=== PATIENT | female | born 1970 | race Caucasian/White ===

== ENCOUNTER → 2020-05-20 12:33 | Outpatient (BNVA) | payer OTHER, SELFPAY | PROVIDERS: PCP Physician Assistant; Referring Provider Physician Assistant; Visit Provider Nurse Practitioner | DX: Z76.89 Persons encountering health services in other specified circumstances (principal) ==

== ENCOUNTER 2020-09-01 08:53 | Outpatient (REF) | payer OTHER, SELFPAY ==
--- NOTE | 2020-09-01 | MM_ITS ---
EXAMINATION: MM SCREENING DIGITAL BREAST TOMOSYNTHESIS, BILATERAL CLINICAL INFORMATION: Screening. Asymptomatic. Benign right breast stereotactic biopsy 08/26/2019. The lifetime risk of breast cancer based on the Tyrer-Cuzick Model is 13%. COMPARISON: Mammography: 02/26/2020, 08/26/2019, 08/22/2019, 08/21/2019, 08/02/2018 TECHNIQUE: Digital breast tomosynthesis is performed in both the craniocaudal and mediolateral oblique views along with computer-aided detection (CAD). Synthesized 2D images are generated from the tomosynthesis. FINDINGS: The breasts are heterogeneously dense, which may obscure small masses (ACR BI-RADS breast composition Category c). There is fibronodular parenchymal pattern similar to prior exam. There is no interval mass or architectural abnormality. Biopsy clip marker again noted right breast lower medial quadrant. There are scattered punctate calcifications in both breasts again seen. No suspicious changes. MM/MM tomosynthesis screening BI IMPRESSION: No mammographic evidence of malignancy. ASSESSMENT: BI-RADS 2: Benign RECOMMENDATION: Routine annual mammography screening. This patient's information was entered into a reminder system with a target due date for their next mammogram.
== END 2020-09-01 08:54 | disposition home or self-care (01) ==
LOC: HO.MAMMO 08:53
PROVIDERS: Visit Provider Physician Assistant
DX: Z12.31 Encounter for screening mammogram for malignant neoplasm of breast (principal)
CPT/HCPCS: 77063; 77067

== ENCOUNTER 2021-05-17 10:00 | Outpatient (RCR) | payer OTHER, SELFPAY | END 2021-08-08 12:03 | disposition home or self-care (01) | LOC: HO.PT 10:00 | PROVIDERS: PCP Physician Assistant; Visit Provider Family Medicine | DX: M72.2 Plantar fascial fibromatosis (principal) | CPT/HCPCS: 97035; 97110; 97112; 97140; 97161 ==

== ENCOUNTER → 2021-08-22 14:24 | Outpatient (BNVA) | payer OTHER, SELFPAY | PROVIDERS: PCP Physician Assistant; Visit Provider Physician Assistant | DX: M72.2 Plantar fascial fibromatosis (principal) | CPT/HCPCS: 20550; J1020 ==

== ENCOUNTER 2021-09-05 08:00 | Outpatient (REF) | payer OTHER, SELFPAY ==
--- NOTE | ~2021-09-05 | MM_ITS ---
EXAMINATION: MM SCREENING DIGITAL BREAST TOMOSYNTHESIS, BILATERAL CLINICAL INFORMATION: Screening. Asymptomatic. Benign right stereotactic biopsy 08/26/2019 (fibrocystic changes and microcalcifications). The lifetime risk of breast cancer based on the Tyrer-Cuzick Model is 13%. COMPARISON: Mammography: 09/01/2020, 02/26/2020, 08/26/2019, 08/22/2019, 08/11/2019, 08/02/2018 TECHNIQUE: Digital breast tomosynthesis is performed in both the craniocaudal and mediolateral oblique views along with computer-aided detection (CAD). Synthesized 2D images are generated from the tomosynthesis. FINDINGS: The breasts are heterogeneously dense, which may obscure small masses (ACR BI-RADS breast composition Category c). There are no significant masses, abnormal calcifications, or other abnormalities. Parenchymal pattern is similar to prior studies. There is no developing density or architectural abnormality. Fibronodular parenchymal pattern is similar to prior studies. Biopsy clip marker again noted right breast mid lower inner quadrant. The axilla and skin contours are unremarkable. No significant changes. MM/MM tomosynthesis screening BI IMPRESSION: No mammographic evidence of malignancy. ASSESSMENT: BI-RADS 2: Benign RECOMMENDATION: Routine annual mammography screening. This patient's information was entered into a reminder system with a target due date for their next mammogram.
== END 2021-09-05 08:01 | disposition home or self-care (01) ==
LOC: HO.MAMMO 08:00
PROVIDERS: PCP Physician Assistant; Visit Provider Physician Assistant
DX: Z12.31 Encounter for screening mammogram for malignant neoplasm of breast (principal)
CPT/HCPCS: 77063; 77067

== ENCOUNTER → 2022-01-30 15:27 | Outpatient (BNVA) | payer OTHER, SELFPAY | PROVIDERS: PCP Physician Assistant; Visit Provider Physician Assistant | DX: M72.2 Plantar fascial fibromatosis (principal) | CPT/HCPCS: J1020 ==

== ENCOUNTER → 2022-09-05 15:27 | Outpatient (BNVA) | payer OTHER, SELFPAY | PROVIDERS: PCP Physician Assistant; Visit Provider Physician Assistant | DX: M72.2 Plantar fascial fibromatosis (principal) | CPT/HCPCS: J1020 ==

== ENCOUNTER 2022-09-08 07:29 | Outpatient (REF) | payer OTHER, SELFPAY ==
--- NOTE | ~2022-09-08 | MM_ITS ---
EXAMINATION: MM SCREENING DIGITAL BREAST TOMOSYNTHESIS, BILATERAL CLINICAL INFORMATION: Screening. Asymptomatic. The lifetime risk of breast cancer based on the Tyrer-Cuzick Model is 9.5%. COMPARISON: Mammography: 09/05/2021 and studies dating back to 12/03/2015. TECHNIQUE: Digital breast tomosynthesis is performed in both the craniocaudal and mediolateral oblique views along with computer-aided detection (CAD). Synthesized 2D images are generated from the tomosynthesis. FINDINGS: The breasts are extremely dense, which lowers the sensitivity of mammography (ACR BI-RADS breast composition Category d). There is multiplicity and bilaterality of calcifications. About the deep lateral aspect of the left breast on craniocaudal view there is seen to be a density with some calcifications but which appears stable compared to study of 09/01/2020. About the deep nipple line region right mediolateral oblique projection there is a density with some calcifications which may be artifactual related to tomosynthesis, however this overlies a region of vessels. Spot magnification view is recommended to ensure that these represent the vessels and not a mass containing calcifications. MM/MM tomosynthesis screening BI IMPRESSION: Right breast density along the deep nipple line with calcifications for which spot magnification views are recommended. ASSESSMENT: BI-RADS 0: Incomplete - Need Additional Imaging Evaluation RECOMMENDATION: 1. Additional views of the right breast. 2. Targeted ultrasound if warranted after review of the additional views. 3. Radiology department staff will contact the patient for additional imaging.
== END 2022-09-08 07:30 | disposition home or self-care (01) ==
LOC: HO.MAMMO 07:29
PROVIDERS: PCP Physician Assistant; Visit Provider Physician Assistant
DX: Z12.31 Encounter for screening mammogram for malignant neoplasm of breast (principal)
CPT/HCPCS: 77063; 77067

== ENCOUNTER 2022-10-05 13:32 | Outpatient (REF) | payer OTHER, SELFPAY ==
--- NOTE | ~2022-10-05 | MM_ITS ---
EXAMINATION: MM DIAGNOSTIC DIGITAL BREAST TOMOSYNTHESIS, RIGHT CLINICAL INFORMATION: Recall from screening for question of density with calcifications along posterior nipple line on MLO view. TC score 10%. COMPARISON: Mammography: Multiple prior mammographic exams, most recent 09/08/2022. TECHNIQUE: Digital breast tomosynthesis is performed. 2D images are generated from the tomosynthesis. The following views are obtained: Magnification MLO, magnification rolled MLO. FINDINGS: The breasts are extremely dense, which lowers the sensitivity of mammography (ACR BI-RADS breast composition Category d). The additional views show fibroglandular densities similar to prior studies. The asymmetric density noted on recent exam corresponds to vascular markings similar to prior studies. There is no interval mass. Again, scattered punctate round calcifications are present in the right breast similar in distribution to prior studies. There are no significant changes. Results are discussed with the patient at time of visit. MM/MM tomosynthesis added views R IMPRESSION: Additional views show no significant changes from prior studies. ASSESSMENT: BI-RADS 2: Benign RECOMMENDATION: Routine annual mammography screening. This patient's information was entered into a reminder system with a target due date for their next mammogram.
== END 2022-10-05 13:33 | disposition home or self-care (01) ==
LOC: HO.MAMMO 13:32
PROVIDERS: PCP Physician Assistant; Visit Provider Physician Assistant
DX: R92.8 Other abnormal and inconclusive findings on diagnostic imaging of breast (principal)
CPT/HCPCS: 77061; 77065

== ENCOUNTER 2023-09-17 07:27 | Outpatient (REF) | payer OTHER, SELFPAY ==
--- NOTE | ~2023-09-17 | MM_ITS ---
EXAMINATION: MM SCREENING DIGITAL BREAST TOMOSYNTHESIS, BILATERAL CLINICAL INFORMATION: Screening. Asymptomatic. COMPARISON: Mammography: This study is compared with prior exams dating back to 2018. TECHNIQUE: Digital breast tomosynthesis is performed in both the craniocaudal and mediolateral oblique views along with computer-aided detection (CAD). Synthesized 2D images are generated from the tomosynthesis. FINDINGS: The breasts are heterogeneously dense, which may obscure small masses (ACR BI-RADS breast composition Category c). There are no significant masses, abnormal calcifications, or other abnormalities. There is a tissue marker present in the right breast from prior benign percutaneous biopsy. Few, bilateral benign calcifications are present. MM/MM tomosynthesis screening BI IMPRESSION: No mammographic evidence of malignancy. ASSESSMENT: BI-RADS BI-RADS 2 - Benign Findings RECOMMENDATION: Routine annual mammography screening. 1 year F/U This examination should not preclude the clinical evaluation of a suspicious palpable abnormality. This patient's information was entered into a reminder system with a target due date for their next mammogram.
== END 2023-09-17 07:28 | disposition home or self-care (01) ==
LOC: HO.MAMMO 07:27
PROVIDERS: PCP Physician Assistant; Visit Provider Physician Assistant
DX: Z12.31 Encounter for screening mammogram for malignant neoplasm of breast (principal)
CPT/HCPCS: 77063; 77067

== ENCOUNTER → 2023-09-17 07:30 | Outpatient (BNV) | payer OTHER, SELFPAY | PROVIDERS: PCP Physician Assistant; Visit Provider Radiology Diagnostic Radiology | DX: Z12.31 Encounter for screening mammogram for malignant neoplasm of breast (principal) | CPT/HCPCS: 77063; 77067 ==

== ENCOUNTER 2024-06-27 08:01 | Outpatient (REF) | payer OTHER, SELFPAY ==
[2024-06-27 09:14] LABS: Anion Gap 9 (12-20); Blood Urea Nitrogen 19 mg/dL (9-16); Calcium 9.8 mg/dL (8.4-10.2); Carbon Dioxide 29 mmol/L (22-29); Chloride 107 mmol/L (96-108); Cholesterol 296 mg/dL (<200); Estimated Glomerular Filt Rate > 60; Glucose Random 86 mg/dL (60-115); HDL Cholesterol 61 mg/dL (>40); LDL Cholesterol Calculated 211 mg/dL (<100); Sodium 141 mmol/L (135-145); Triglycerides 124 mg/dL (<150)
[2024-06-27 09:31] LABS: ~Hepatitis C Antibody Nonreactive (Nonreactive)
== END 2024-06-27 08:02 | disposition home or self-care (01) ==
LOC: HO.LAB 08:01
PROVIDERS: PCP Physician Assistant; Visit Provider Physician Assistant
DX: Z11.59 Encounter for screening for other viral diseases (principal); E78.5 Hyperlipidemia, unspecified
CPT/HCPCS: 36415; 80048; 80061; 86803

== ENCOUNTER 2024-09-30 07:25 | Outpatient (REF) | payer OTHER, SELFPAY | END 2024-09-30 07:26 | disposition home or self-care (01) | LOC: HO.MAMMO 07:25 | PROVIDERS: PCP Physician Assistant; Visit Provider Physician Assistant | DX: Z12.31 Encounter for screening mammogram for malignant neoplasm of breast (principal) | CPT/HCPCS: 77063; 77067 ==

== ENCOUNTER → 2024-09-30 07:30 | Outpatient (BNV) | payer OTHER, SELFPAY | PROVIDERS: PCP Physician Assistant; Visit Provider Internal Medicine | DX: Z12.31 Encounter for screening mammogram for malignant neoplasm of breast (principal) | CPT/HCPCS: 77063; 77067 ==

== ENCOUNTER 2024-10-13 07:42 | Outpatient (REF) | payer OTHER, SELFPAY ==
--- OUTSIDE RECORDS SUMMARY | 2024-10-13 07:45 | XMS_ITS | Data Portability ---
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 MAGALI SANCHES Primary Care Provider [facility] Orthopedist Assessment Encounter Date Assessment Date Assessment LastModified by Organization Details LastModified Time 08/31/2020 08/31/2020 Patient agreed to this visit via a secure telehealth platform due to the COVID -19 pandemic. Patient understands this is a scheduled visit and the usual procedures with regard to billing and confidentiality apply. Patient was notified that the provider location is [facility] Patient location: home During the visit the patient? s medical history and medical record were reviewed. The patient was notified to call our office for worsening or urgent symptoms. Not available 08/31/2020 09:01:43 10/20/2020 10/20/2020 Patient agreed to this visit via a secure telehealth platform due to the COVID -19 pandemic. Patient understands this is a scheduled visit and the usual procedures with regard to billing and confidentiality apply. Patient was notified that the provider location is Patient location: home During the visit the patient? s medical history and medical record were reviewed. The patient was notified to call our office for worsening or urgent symptoms. [email or web address] Not available 10/20/2020 12:08:58 07/23/2024 07/23/2024 Assessment & Plan Hypertension Home blood pressure readings have been satisfactory, with the highest reading being 130. Office blood pressure readings remain slightly elevated. The patient has not yet started estrogen therapy due to concerns about potential blood pressure elevation. -Continue monitoring blood pressure at home once a week. -Bring home blood pressure machine to next visit for accuracy check. Hyperlipidemia Recent labs showed elevated LDL cholesterol. The patient has started logging food intake and recognizes the need for dietary improvements. -Encourage dietary changes, including increased fiber intake, reduced sodium, and increased consumption of fruits and vegetables. -Recheck lipid panel in three months. Menopausal Symptoms The patient reports ongoing symptoms including night sweats, hot flashes, and brain fog. The patient has not yet started prescribed estrogen and progestin therapy. -Start estrogen and progestin therapy as previously discussed. -Follow up on symptom improvement at next visit. Tennis Elbow (Right) The patient reports ongoing discomfort, which has impacted gym attendance and exercise routine. A referral for physical therapy was previously provided but the patient has not yet scheduled an appointment. -Encourage scheduling of physical therapy appointment. -Discuss return to gym and exercise routine with physical therapist to avoid exacerbation of symptoms. Follow-up in three months. The patient should have lipid panel drawn one week prior to the next visit. camacho Not available 07/25/2024 19:59:32 Plan of Treatment Reminders Order Date Submit Date Provider Last Modified By Organization Details Last Modified Time Details Appointments Medical Managemen t 30 2024 08:00A M YAMILET Brody Not available Not available Not available Wellness Visit 30 2024 09:00A M YAMILET Brody Not available Not available Not available Lab lipid panel, serum 2023 [facility], [address] [place] [address], [id number], 10/08/2024 07:34:04 hepatitis C virus Ab, serum 2023 024 [facility], [address] [place], [address], 06/30/2024 11:14:55 lipid panel, serum 2023 024 [facility], [address] [place], [address], 06/30/2024 11:14:55 BMP, serum or plasma 2023 024 [facility], [address] [place] [address], [place], [address], 06/30/2024 11:14:54 Referral physical therapist referral 2020 [facility], [address] [place] [address], [id number], 03/08/2021 15:03:30 car 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 Surgeries None recorded. Imaging None recorded. Medication Orders estradiol 0.5 mg tablet 2023 024 [facility], [address] [place] [address], [address], 07/23/2024 08:30:09 progester one micronize d 100 mg capsule 2023 024 [facility], [address] [place] [address], [id number], 07/23/2024 08:30:21 Patient TargetsNo targets recorded. Patient Instructions Encounter Date Encounter Id Patient Instructions Last Modified By Organization Details Last Modified Time 08/31/2020 [id number] well visit, wome n 50 to 65: care instructions Not available 08/31/2020 09:03:33 10/20/2020 [id number] After a discussi on of treatment options, which included consideration of best practices, patient preferences, and the patient? s individual lifestyle and treatment goals, as well as consideration and attempted mitigation of any barriers to meeting the patient? 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 [place] [address] Lab Direc tor: Mayra jordan MD DRY LUMBER GRADER Cytol ogy Repor t Acces fermín #: [id number] FINAL DIAGN OSIS A. PAP SMEAR (SURE PATH) CE: SPECI MEN ADEQU ACY: Satis facto ry for evalu ation ; trans forma tion zone prese nt. INTER PRETA TION: NEGAT GINA FOR INTRA EPITH ELIAL SADA N OR MALDEMETRA CASTANEDA . Elect bart hoang Bridgett d Out By: Julianne Anna er, CT( CP) The Pap test is a scree michel test prima rily for squam ous cance rs and precu rsors and has assoc iated false -nega tive and false -posi tive resul ts. New techn ologi es such as liqui d-bas ed prepa ratio ns may decre ase but will not elimi mayco all false -nega tive resul ts. Regul ar sampl ing and follo w-up of unexp neel d clini sylvia signs and sympt oms are recom elly d to minim ize false negat gina resul ts. PROCE DURES /ADDE NDA HPV Testi ng (Requ ested ) Order ed Date: 2022 A. PAP SMEAR (SURE PATH) CE: Human Papil austyn Virus Test NEGAT GINA for high- risk Human Papil austyn Virus types 16, 18, 45 and the Othe r high risk probe set (Incl udes 31, 33, 35, 39, 51, 52, 56, 58, 59, 66, 68) Note: Testi ng perfo rmed by Lizette dorado Oncla rosay HR-HP V roney sis. Clini sylvia corre latio n is advis ed. This HPV test was perfo rmed at [facility], [address] [facility]. This test has been FDA appro priscilla for SureP ath cervi sylvia cytol ogy speci mens. The accur acy and preci fermín of this test for all other speci men sourc es has been verif ied in the Cytop athol ogy Labor atory of the [facility] and has not been clear ed or appro priscilla by the U.S. Food and Drug Admin istra tion. Clini sylvia corre latio n is advis ed. Elvira ctron icall y Bridgett d Out By: Mitra Plunkett on 2022 11:01 CLINI SYLVIA HISTO RY Date of Last Menst rual Perio d: 2022 Menst rual Histo ry: Simona- Menop ausal Contr acept gina Histo ry: Miren a Other Clini sylvia Condi tions : Scree michel Pap SPECI MEN SOURC E A: PAP SMEAR (SURE PATH) CE Patie nt Name: YVETTE MCFARLANE : 1969 (Age: 52) Sex: F 4 Insti tutio n: [facility] Locat ion: [facility] Date of Colle ction : 2022 Date of Acces fermín: 2022 Repor alex: 2022 11:57 Resul ts to: Saniya Lester MD Not Available [facility] (Outpatient) [address] [place], [address], 11/02/2022 12:06:16 09/02/19 21 09/01/2020 MAMMO clairerita pearson No observ ation record ed. facundo [facility] [address] [place], [address], 09/02/2020 10:46:33 09/06/19 22 09/05/2021 MAMMO , scree michel No observ ation [facility] ed[facility] [place] [address] [place], [address], 09/06/2021 09:07:11 09/11/19 23 09/08/2022 MAMMO , scree michel, tomos ynthe sis, bilat eral No observ ation record ed. [address] [place], [address], 09/17/2022 20:19:14 10/06/19 23 10/05/2022 MAMMO , scree michel No observ [facility]ion [facility] [place] [address] [place], [address], 10/05/2022 15:29:03 10/05/19 25 09/30/2024 MAMMO , scree michel No observ ation record ed. [facility] [place] [address] [place], [address], 10/06/2024 08:37:01 Result Notes None recorded. Problems Name Problem SNOMED Code Status Onset Date Resolution Date Notes Provider Name and Address Organization Details Recorded Time Abnormal findings on diagnostic imaging of breast 197123774 Completed 11/10/2015 Brea Birch NP [address] [place] [address], [address] , [facility] 6 10:36:57 Axillary lymphadeno asia 985869430 Completed 11/10/2015 Brea Birch NP [address] [place] [address], [address] , [facility] 6 10:36:57 Mammograph y abnormal 476127293 Active Brea Birch NP [address] [place] [address], [address] , [facility] 6 10:36:57 Knee pain Completed 11/10/2015 Brea Birch NP [address] [place] [address], [address] , [facility] 6 10:36:57 Disorder of hair 534140378 Completed 11/10/2015 Brea Birch NP [address] [place] [address], [address] , [facility] 6 10:36:57 Lymphadeno asia 01947257 Active Brea Birch NP [address] [place] [address], [address] , [facility] 6 10:36:57 Allergic rhinitis 54519337 Active 2016 YAMILET Brody [address] [place] [address], [address] , [facility] 7 16:07:37 Adverse reaction to substance 627434888 Completed 200511/10/2015 Brea Birch NP [address] [place] [address], [address] , [facility] 6 10:36:57 Adverse reaction to drug 33762795 Completed 200511/10/2015 Brea Birch NP [address] [place] [address], [address] , [facility] 6 10:36:57 Precordial pain 05557325 Completed 200606/25/2013 Brea Birch NP [address] [place] [address], [address] , [facility] 6 10:36:57 Abdominal pain 66710063 Completed 06/25/2013 Brea Birch NP [address] [place] [address], [address] , [facility] 6 10:36:57 Common cold 51730921 Completed 200206/25/2013 Brea Birch NP [address] [place], [address] , [facility] 6 10:36:57 Palpitatio ns 06307576 Completed 200111/10/2015 Brea Birch NP [address] [place] [address], [address] , [facility] 6 10:36:57 Shoulder pain 88292152 Completed 06/25/2013 Brea Birch NP [address] [place] [address], [address] , [facility] 6 10:36:57 Anemia 542616453 Completed 200611/10/2015 Brea Birch NP [address] [place], [address] , [facility] 6 10:36:57 Benign essential hypertensi on 3808478 Completed 200608/31/2020 Rosa Valencia PA-C [address] [place] [address], [address] , [facility] 1 08:57:33 Elevated blood-pres sure reading without diagnosis of hypertensi on 654214755 Completed 11/10/2015 Brea Birch NP [address] [place] [address], [address] , [facility] 6 10:36:57 Other Completed 06/25/2013 Brea Birch NP [address] [place] [address], [address] , [facility] 6 10:36:57 Problem Notes None recorded. Procedures Surgical History Date Name Laterality Status Provider Name and Address Organization Details Recorded Time 1 prevention-card iovascular risk reduction counseling completed Adri Grey [facility] 08/31/2020 07:55:10 1 prevention-roberth al alcohol misuse screening completed Adri Grey [facility] 08/31/2020 07:55:10 4 23880: Therapeutic Exercise completed Jarred Ga, PT [address] [place], [address], [facility] 12/11/2013 08:13:50 4 07257: Therapeutic Exercise completed Jarred Ga, PT [address] [place], [address], [facility] 12/05/2013 10:10:30 4 Treatment and Advice completed Jarred Ga, PT [address] [place], [address], [facility] 12/05/2013 10:01:36 4 53439: Therapeutic Exercise completed Jarred Ga, PT [address] [place], [address], [facility] 11/21/2013 10:00:36 4 53828: Manual Therapy completed Jarred Ga, PT [address] [place], [address], [facility] 11/21/2013 10:00:36 4 59300: Therapeutic Exercise completed Jarred Ga, PT [address] [place], [address], [facility] 11/19/2013 10:00:20 4 21195: Manual Therapy completed Jarerd Ga, PT [address] [place], [address], [facility] 11/19/2013 10:00:20 4 98230: Therapeutic Exercise completed Jarred Ga, PT [address] [place], [address], [facility] 11/11/2013 10:37:15 4 65129: Manual Therapy completed Jarred Ga, PT [address] [place], [address], [facility] 11/11/2013 10:37:15 4 Treatment and Advice completed Jarred Ga, PT [address] [place], [address], [facility] 10/29/2013 15:00:07 0 Treatment and Advice completed Jarred Ga, PT [address] [place], [address], [facility] 03/09/2010 09:01:17 0 Treatment and Advice completed Jarred Ga, PT [address] [place], [address], [facility] 02/16/2010 08:00:32 0 Treatment and Advice completed Jarred Ga, PT [address] [facility], [place], [address], [facility] 02/09/2010 08:03:22 Imaging Results Imaging Date Name Status LastModified by Organiz ation Details LastModified Time 09/01/2020 MAMMO, screening completed facundo [address] [place], [address], 09/02/2020 10:46:33 09/05/2021 MAMMO, screening completed azryannalDylan [address] [place], [address], 09/06/2021 09:07:11 09/08/2022 MAMMO, screening, tomosynthesis, bilateral completed bhaskar[address] [place], [address], 09/17/2022 20:19:14 10/05/2022 [facility]MO, [facility] [address] [place], [address], 10/05/2022 15:29:03 09/30/2024 MAMMO, screening completed [email or web address] [place], [address], 10/06/2024 08:37:01 Procedure Notes None recorded. Medical Equipment None Reported. Allergies No known drug allergies Medications Name Sig Start Date Stop Date Status Note LastModified by Organization Details LastModified Time doxycycli ne hyclate 100 mg capsule 08/28 completed Not Available Not Available Not Available estradiol 0.5 mg tablet Take 1 tablet every day by oral route. active has not started taking 07/23/24 oad Not Available Not Available Not Available fluticaso ne propionat e 50 mcg/actua tion nasal spray,jhon pension SHAKE LIQUID AND USE 2 SPRAYS IN EACH NOSTRIL EVERY DAY IN THE MORNING active Not Available Not Available No t Available doxycycli ne hyclate 100 mg tablet 08/28 completed Not Available Not Available Not Available progester one micronize d 100 mg capsule Take 1 capsule every day by oral route for 30 days. active has not started taking 07/23/24 oad Not Available Not Available Not Available Dulcolax (bisacody l) 5 mg tablet,de layed release TK 2 TS PO BID 08/31 completed Not Available Not Available Not Available tobramyci n 0.3 %-dexamet hasone 0.1 % eye drops,jhon pension 06/03 completed Not Available Not Available Not Available peg 3350-elec trolytes 236 gram-22.7 4 gram-6.74 gram-5.86 gram solution MIX AND DRINK UTD 08/31 completed Not Available Not Available Not Available Vitals Date Recorded Body height Body mass index (BMI) Body weight Body temperature Provider Name and Address Organization Details Last Updated DateTime 08/31/2020 156.85 cm 20.6 kg/m2 23299.35 g 97.2 [degF] Adri Grey [facility] 08/31/2020 08:33:40 Date Recorded Body height Body mass index (BMI) Body weight Heart rate Provider Name and Address Organization Details Last Updated DateTime 10/20/2020 156.85 cm 20.6 kg/m2 31088.35 g 73 /min Yamel Osorio MA [facility] 10/20/2020 12:06:02 Date Recorded Body height Body mass index (BMI) Body weight Systolic blood pressure Diastolic blood pressure Provider Name and Address Organization Details Last Updated DateTime 03/01/2021 156.85 cm 20.3 kg/m2 30728.16 g 130 mm[Hg] 68 mm[Hg] Fiorella Stubbs MA [facility] 11:49:41 Date Recorded Body weight Body mass index (BMI) Body height Heart rate Oxygen saturation Oxygen saturation in Arterial blood by Pulse oximetry Systolic blood pressure Diastolic blood pressure Provider Name and Address Organization Details Last Updated DateTime 4 39497.7 1 g 22.3 kg/m2 153.67 cm 77 /min 99 % 99 % 144 mm[Hg] 80 mm[Hg] GUERO Gooden [facility] 4 16:09:15 Date Recorded Body height Body mass index (BMI) Body weight Heart rate Systolic blood pressure Diastolic blood pressure Systolic blood pressure Diastolic blood pressure Provider Name and Address Organization Details Last Updated DateTime 4 153.67 cm 22 kg/m2 29394.9 7 g 80 /min 134 mm[Hg] 74 mm[Hg] 123 mm[Hg] 72 mm[Hg] Ju Gannon [facility] 4 09:39:50 Social History Question Answer Notes LastModified by Organizat ion Details LastModified Time Tobacco Smoking Status Never Smoker Not Available [facility] 06/22/2011 04:54:19 Do You Have An Advance Directive? No Information not available 09/12/2011 What Is Your Level Of Alcohol Consumption? Occasional Maybe 1/month Information not available 04/24/2016 Do You Wear A Helmet When Biking? Yes Information not available 08/26/2018 What Is Your Level Of Caffeine Consumption? None [email or web address] Information not available 06/22/2011 How Much Tobacco Do You Chew? None [email or web address] Information not available 11/22/2015 Are You Currently Employed? Yes Information not available 06/06/2024 What Type Of Diet Are You Following? REGULAR Low Salt Information not available 07/15/2009 Which Illicit Or Recreational Drugs Have You Used? 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 Information not available 06/06/2024 Have There Been Any Changes To Your Family Or Social Situation? No Information not available 06/06/2024 Are There Any Guns Present In Your Home? No Information not available 09/12/2011 Live Alone Or With Others? With Others [email or web address] Information not available 06/22/2011 Patient Has Health Care Proxy Signed And In Chart No Declines For Now [email or web address] Information not available 08/01/2018 Marital Status Informatio n not available 09/12/2011 Mosquito Repellent Used Routinely Yes Information not available 08/26/2018 What Was The Date Of Your Most Recent Tobacco Screening? 07/23/2024 odinis Information not available 07/23/2024 How Many Children Do You Have? 2 [email or web address] Information not available 06/22/2011 Are There Any Occupational Health Risks Where You Work? None Information not available 04/24/2016 What Is Your Relationship Status? Information not available 06/06/2024 Do You Use Your Seat Belt Or Car Seat Routinely? Yes Information not available 06/06/2024 Seat Belts Used Routinely Yes Information not available 09/12/2011 Are You Sexually Active? Yes [email or web address] Information not available 04/25/2017 Smoke Alarm In Home Yes Information not available 09/12/2011 Do You Have Smoke And Carbon Monoxide Detectors In Your Home? Yes Information not available 06/06/2024 Are You Passively Exposed To Smoke? No Information not available 06/06/2024 General Stress Level Low Information not available 04/24/2016 Do You Use Sunscreen Routinely? Yes Information not available 09/12/2011 Do You Or Have You Ever Used Any Other Forms Of Tobacco Or Nicotine? No Information not available 06/06/2024 Sex: Female Functional Status Question Answer Note LastModified by Organization D etails LastModified Time What is your exercise level? Moderate Information not available 06/06/2024 Mental Status None recorded. Family History Relationship Description Onset Age of this Age Resolved Age Notes LastModified by Organization Details LastModified Time Paternal Grandmother Hypertensive disorder previo usly record ed as Hypert ension aesrick Not available 11/22/2015 16:45:08 Mother Mental disorder previo usly record ed as Psychi atric Disord ers aesrick Not available 11/22/2015 16:45:08 Paternal Grandfather Heart disease 51 aesrick Not available 2015 16:45:08 Paternal Grandfather Myocardial infarction 52 52 [email or web address] Not available 15:16:55 Father Hypertensive disorder previo usly record ed as Hypert ension aesrick Not available 11/22/2015 16:45:08 Father Parkinson's disease 73 aesrick Not available 2015 15:55:41 Maternal Aunt Malignant tumor of breast [email or web address] Not available 08/07 15:17:16 Medical History Condition Response Allergic Rhinitis Y Gynecological History Statement/Question Response Menses Monthly Y History of Abnormal Pap N Current Control Method Obstetrics History GPAL:G 0 P 0 0 0 0 Immunizations Vaccine Type Date Status Note Provider Nam e and Address Organization Details Recorded Time Td(adult) unspecified formulation 6 completed Not Available [facility] 10/30/2022 13:20:03 influenza, unspecified formulation 7 completed Not Available [facility] 10/30/2022 13:20:03 Influenza, split virus, trivalent, preservative 2 completed Not Available [facility] 08/23/2019 02:18:36 Tdap 2 completed Not Available [facility] 08/23/2019 02:15:48 Influenza, split virus, trivalent, PF 3 completed Not Available [facility] 08/23/2019 02:33:05 influenza, unspecified formulation 8 completed Not Available [facility] 10/30/2022 13:20:03 Influenza, split virus, quadrivalent, preservative 9 completed Not Available [facility] 10/30/2022 13:20:03 SARS-COV-2 (COVID-19) vaccine, UNSPECIFIED 0 completed Not Available [facility] 10/30/2022 13:20:03 SARS-COV-2 (COVID-19) vaccine, UNSPECIFIED 1 completed Not Available [facility] 10/30/2022 13:20:03 influenza, unspecified formulation 0 completed Not Available [facility] 10/30/2022 13:20:03 Td (adult), 2 Lf tetanus toxoid, preservative free, adsorbed 4 completed YAMILET Brody [address] [place] [address], [address], [facility] 06/10/2024 20:04:50 influenza, unspecified formulation 4 completed GUERO Gooden, [facility] 06/06/2024 15:57:18 Past Encounters Encounter ID Performer Location Encounter Start Date Encounter Closed Date Diagnosis/Indication Diagnosis SNOMED-CT Code Diagnosis ICD10 Code Diagnosis Note [id number] [facility], OFFICE [address] [place] [address] 6 11/27/2000 14:15:00 08/26/2008 02:02:29 [id number] [facility], OFFICE [address] [facility] [address] 12/09/2001 13:45:00 08/26/2008 02:02:29 [id number] LAB - [facility] [address] [facility] [place] [address] 06/12/2002 15:55:41 08/26/2008 02:02:29 [id number] [facility], OFFICE [address] [facility] [address] 06/12/2002 15:14:03 08/26/2008 02:02:29 [id number] [facility], OFFICE [address] [facility] [place] [address] 01/09/2003 11:18:31 08/26/2008 02:02:29 [id number] LAB - [facility] [place] [address] 01/19/2003 08:59:40 08/26/2008 02:02:29 [id number] [facility], OFFICE [address] [facility] [place] [address] 04/08/2003 09:55:25 08/26/2008 02:02:29 [id number] [facility], OFFICE [address] [facility] [place] [address] 04/10/2003 13:58:52 04/13/2003 08:55:35 [id number] [facility], OFFICE [address] [facility] [place] [place] [address] 05/13/2004 16:25:29 05/14/2004 13:03:21 [id number] [facility], OFFICE [address] [facility] [place] [address] 02/08/2006 14:23:42 08/26/2008 02:02:29 [id number] [facility], OFFICE [address] [facility] [place] [address] 03/27/2006 15:00:39 03/28/2006 08:35:51 [id number] [facility], OFFICE [address] [facility] [place] [address] 6 07/03/2006 08:51:13 07/03/2006 13:51:57 [id number] [facility], OFFICE 70 [place] 6 08/21/2006 11:47:02 08/23/2006 16:43:27 [id number] [facility], OFFICE [address] [place] [address] 08/29/2006 12:08:01 08/29/2006 14:11:24 [id number] [facility], OFFICE 70 [place] 6 11/28/2006 11:45:44 11/28/2006 15:47:02 [id number] [facility], OFFICE 70 [place] 6 05/30/2007 11:59:59 08/26/2008 02:02:29 [id number] LAB - [facility] 70 [facility] [place] [address] 06/06/2007 07:28:43 06/06/2007 07:28:49 [id number] [facility], OFFICE [address] [facility] [place] [address] 07/15/2009 10:34:41 07/16/2009 13:59:30 [id number] Radiology , [facility] 70 [facility] [place] 6 07/21/2009 09:02:34 07/26/2009 14:00:53 [id number] Radiology , [facility] 70 [facility] [place] 6 08/27/2009 08:39:52 08/30/2009 13:57:03 [id number] [facility], OFFICE [address] [facility] [place] [address] 08/31/2009 11:04:37 09/02/2009 08:01:38 [id number] [facility], OFFICE [address] [facility] [place] [address] 12/28/2009 09:01:40 01/18/2010 14:52:42 [id number] Physical Therapy, [facility] 70 [place]-[address] 6 02/09/2010 07:27:45 02/09/2010 09:25:26 [id number] Physical Therapy, [facility] 70 [facility] [place] 6 02/16/2010 07:26:36 02/16/2010 08:06:57 [id number] Physical Therapy, [address] [address] 03/09/2010 08:27:52 03/10/2010 08:18:24 [id number] Physical Therapy, [address] [address] 03/28/2010 14:50:34 03/29/2010 08:02:46 [id number] Physical Therapy, [address] [address] 04/13/2010 15:22:37 04/14/2010 07:53:47 [id number] Radiology , [address] [address] 07/28/2011 08:10:37 08/04/2011 09:02:45 [id number] [facility], OFFICE [address] [place] [address] 09/12/2011 08:49:26 09/12/2011 09:54:21 [id number] YAMILET Brody [facility], OFFICE [address] [place] [address] 05/23/2012 09:08:09 05/23/2012 09:48:45 [id number] [facility], OFFICE [address] [place] [address] 04/21/2013 08:50:52 04/21/2013 10:36:37 Axillary lymphadenopathy [id number] pt feeling fullness in left axillary-n eg exam- not sure how long felt this- check chest xray, cbc- f/u with results- consider repeat ultrasound [id number] [facility], OFFICE [address] [place] [address] 05/26/2013 16:14:09 05/29/2013 08:40:56 Influenza vaccine needed [id number] 106 Axillary lymphadenopathy 138467387 pt feeling fullness in left axillary-n eg exam- Negative MRI- f/u with surgeon as planned [id number] Taina Rodrigues Physical [facility], [address] [address] 10/29/2013 14:20:17 11/04/2013 09:14:28 Knee pain [id number] Postoperative care [id number] Knee meniscecto my by Dr. Horowitz October 10, 2013 [id number] Jarred Ga , PT Physical Therapy, [address] [address] 11/06/2013 07:53:20 11/06/2013 09:17:47 Knee pain [id number] Postoperative care [id number] Knee meniscecto my by Dr. Horowitz October 10, 2013 [id number] Jarred Ga , PT Physical Therapy, [address] [address] 11/11/2013 09:23:48 11/11/2013 10:46:42 Knee pain [id number] Postoperative care [id number] Knee meniscecto my by Dr. Horowitz October 10, 2013 [id number] Jarred Ga , PT Physical Therapy, [address] [address] 11/13/2013 08:28:00 11/13/2013 10:24:47 Knee pain [id number] Postoperative care [id number] Knee meniscecto my by Dr. Horowitz October 10, 2013 [id number] Jarred Ga , PT Physical Therapy, [address] [address] 11/19/2013 09:21:49 11/19/2013 11:25:54 Knee pain [id number] Postoperative care [id number] Knee meniscecto my by Dr. Horowitz October 10, 2013 [id number] Jarred Ga , PT Physical Therapy, [address] [address] 11/21/2013 09:22:10 11/21/2013 10:38:48 Knee pain [id number] Postoperative care [id number] Knee meniscecto my by Dr. Horowitz October 10, 2013 [id number] Jarred Ga , PT Physical Therapy, [address] [address] 11/27/2013 07:53:39 11/27/2013 12:39:43 Knee pain [id number] Postoperative care [id number] Knee meniscecto my by Dr. Horowitz October 10, 2013 [id number] Jarred Ga , PT Physical Therapy, [address] [address] 12/05/2013 09:21:39 12/05/2013 10:23:31 Knee pain [id number] Postoperative care [id number] Knee meniscecto my by Dr. Horowitz October 10, 2013 [id number] Jarred Ga , PT Physical Therapy, [facility] 70 [place] [address] 12/11/2013 07:52:26 12/11/2013 09:18:15 Knee pain 78263612 Postoperative care [id number] Knee meniscecto my by Dr. Horowitz October 10, 2013 [id number] [facility], OFFICE [address] [place] [address] 12/17/2013 13:38:56 12/19/2013 10:48:31 Disorder of hair 161233191 Lymphadenopathy [id number] resolved [id number] Physical [facility], [facility] [address] [place] [address] 12/25/2013 07:51:52 12/25/2013 10:38:58 Knee pain [id number] Postoperative care [id number] Knee meniscecto my by Dr. Horowitz October 10, 2013 [id number] [facility], OFFICE [address] [place] [address] 08/24/2014 15:21:39 08/24/2014 16:48:35 Adult health examination 874972165 see Risk Assessment and Lifestyle Change Counseling section above Counseling [id number] Screening for malignant neoplasm of cervix 932950916 [id number] [facility], OFFICE [address] [place] [address] 11/10/2015 10:11:39 11/11/2015 09:57:03 Benign neoplasm of skin of face 68720889 D23.30 advised daily sunscreen >30spf derm consult [id number] YAMILET Brody , [facility], OFFICE [address] [place] [address] 11/22/2015 16:13:52 11/22/2015 16:49:19 Benign essential hypertension 0026681 I10 Blood pressure at goal - has pmh elevation- cont DASHdiet, exercise- f/u 1 year [id number] YAMILET Brody , [facility], OFFICE [address] [place] [address] 12/30/2015 08:41:47 12/30/2015 09:43:30 Chest pain 01473955 R07.9 f/u phone call- 6/2- resolved chest pain after using heat, rest [id number] YAMILET Brody, [facility], OFFICE [address] [place] [address] 04/24/2016 15:16:04 04/24/2016 16:09:37 Adult health examination 030874852 Z00.00 see Risk Assessment and Lifestyle Change Counseling section above Counseling 130695097 Z71 .9 [id number] YAMILET Brody, [facility], OFFICE [address] [place] [address] 04/25/2017 15:13:35 04/25/2017 16:25:45 Adult health examination 377083888 Z00.00 see Risk Assessment and Lifestyle Change Counseling section above Counseling 584520036 Z71 .9 Allergic rhinitis 331522 04 J30.9 declined flonase tx, discussed wellness ctr - 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- Increased blood pressure 98794008 R03.0 weekly checks- f/u 3 months [id number] YAMILET Brody, [facility], OFFICE [address] [place] [address] 06/03/2018 14:09:50 06/03/2018 15:31:12 Palpitations 14731727 R00.2 [id number] YAMILET Brody, [facility], OFFICE [address] [place] [address] 06/20/2018 16:20:27 06/20/2018 16:55:30 Screening mammography 00632818 Z12.31 Palpitations 10987065 R0 0.2 resolved- f/u recurrence [id number] YAMILET Brody, [facility], OFFICE [address] [place] [address] 08/26/2018 07:58:58 08/26/2018 08:46:42 Adult health examination 122525412 Z00.00 see Risk Assessment and Lifestyle Change Counseling section above Counseling 961721841 Z71 .9 Depression screening 171 550290 Z13.89 depression screening tool administer ed, entered into emr, scored and discussed, time greater than 7.5 minutes Mixed hyperlipidemia 267 685918 E78.2 Screening for malignant neoplasm of cervix 520809509 Z12.4 Screening for malignant neoplasm of colon 841567480 Z12.11 Referral for a DIRECT booked colonoscop y. This patient is a healthy ASA Class 1 or 2 patient (only mild systemic disease), or a STABLE, well controlled insulin dependent diabetic. They do not have serious cardiac disease ie NM/angiopl asty within 1 year, symptomati c CHF; renal failure with CKD 4 or 5; take Coumadin, Plavix, Aggrenox, etc. [id number] YAMILET Brody, [facility], OFFICE [address] [place] [address] 10/14/2018 16:34:09 10/14/2018 17:29:30 Screening for malignant neoplasm of colon 896589887 Z12.11 Referral for a DIRECT booked colonoscop y. This patient is a healthy ASA Class 1 or 2 patient (only mild systemic disease), or a STABLE, well controlled insulin dependent diabetic. They do not have serious cardiac disease ie NM/angiopl asty within 1 year, symptomati c CHF; renal failure with CKD 4 or 5; take Coumadin, Plavix, Aggrenox, etc. Pruritus of vagina 74188 003 L29.3 Eruption 495709930 R21 [id number] Rosa Valencia PA-C FP, [facility], OFFICE [address] [place] [address] 08/28/2019 14:41:52 08/28/2019 15:27:58 Adult health examination 850643542 Z00.00 see risk assessment Counseling 865255460 Z71 .9 Depression screening 171 035395 Z13.89 depression screening tool administer ed, entered into emr, scored and discussed, time greater than 7.5 minutes Screening for malignant neoplasm of colon 441418784 Z12.11 WIll schedule at [facility]. [id number] SHAGUFTA Nettles, [facility], OFFICE [address] [place] [address] 08/31/2020 08:30:54 09/09/2020 14:51:35 Adult health examination 331516064 Z00.01 No abnormal findings. Labs due. RTC 12 months. Counseling 358285031 Z71 .9 including cardiovasc ular risk reduction counseling Depression screening 171 181023 Z13.89 depression screening tool administer ed, entered into emr, scored and discussed, time greater than 7.5 minutes Screening for alcohol abuse 834494902 Z13.39 see audit C Screening for disorder 088795471 Z11.59 [id number] YAMILET Brody, [facility], OFFICE [address] [place] [address] 10/20/2020 12:03:41 10/21/2020 08:08:03 Allergic rhinitis 74418559 J30.9 trial with flonase- allergy referral with persistant allergies [id number] Fiorella Headley MD FP, [facility], OFFICE [address] [place] [address] 03/01/2021 11:30:50 03/03/2021 15:47:15 Plantar fasciitis of left foot 7499123233 7367424 M72.2 Recommend a heel cup, PT. If not improving, let us know [id number] YAMILET Brody , [facility], OFFICE [address] [place] [address] 06/06/2024 15:19:37 06/06/2024 16:59:45 Active or passive immunization 327290776 Z23 Elevated blood-pressure reading without diagnosis of hypertension 931684247 R03.0 improved with dash diet, exercise, f/u at [facility] HRT: combi terry estrogen/progestogen 942801581 Z79.890 Hyperlipidemia 79587579 E78.5 Hepatitis C screening 41 4259856 Z11.59 [id number] YAMILET Brody , [facility], OFFICE [address] [place] [address] 07/23/2024 08:23:44 07/23/2024 09:07:13 Elevated blood-pressure reading without diagnosis of hypertension 004387171 R03.0 improved with dash diet, exercise, f/u at [facility] Menopausal syndrome 1237 74590 N95.9 Hyperlipidemia 47741193 E78.5 after nutrition changes- recheck 3 months Health Concerns Section Related Observation LastModified by Organization Detai ls LastModified Time None Recorded Concern Status LastModified by Organization Details LastModified Time None Recorded Advance Directives Directive N: Payers Encounter Date Sequence Insurance Name Policy Number Policy Blanco Covered Member ID Blanco Member ID Guarantor Name 08/31/2020 1 [employer] [place] [id number] Yvette Hodges [id number] Yvette Hodges 10/20/2020 1 [employer] [place] [id number] Yvette Hodges [id number] Yvette Hodges 03/01/2021 1 [employer] [place] [id number] Yvette Hodges [id number] Yvette Hodges 06/06/2024 1 [employer] [place] [id number] Yvette Hodges [id number] Yvette Hodges 07/23/2024 1 [employer] [place] ([place]) [id number] Yvette Hodges [id number] Yvette Hodges Notes Date Note Type Note Provider Name and Address Organization Details Recorded Time 08/31/2020 text/html Physical Exam/FemaleReported bypatient.PHAPatient is here for a Wellness Visit. She describes her health status as good. Patient's health is the same as last year.Risk Assessment and Lifestyle Change Counseling 18-50Reported bypatient.Coronary Artery Disease Risk Assesment:No Family history of coronary artery disease; No personal history of diabetes; No history of peripheral vascular disease, AAA, or carotid disease; No personal history of coronary artery disease Breast Cancer Risk Assessment:Family history of breast cancer two or more first degree relatives; No history of breast cancer or dcis Lung Cancer Risk Assessment:Never smoked Cognitive/Behavioral Risk Assessment:No personal history of mental illness;Family history of mental illness Safety Risk Assessment:No evidence of abuse/neglectRisk Assessment and Lifestyle Change Counseling 50-64Reported bypatient.Coronary Artery Disease Risk Assessment:Family History of Coronary Artery Disease; No personal history of diabetes Breast Cancer Risk Assessment:No history of breast cancer or dcis Colon Cancer Risk Assessment:No family history of colon polyps or cancer Lung Cancer Risk Assessment:Never smoked Fracture Risk Assessment:No unexplained fracture Cognitive/Behavioral Risk Assessment:No personal history of mental illness Diet:Counseled about appropriate portion size; Counseled about eating a diet low in trans and saturated fats and high in fiber, fruits and vegetables; Counseled about appropriate calcium intake and good dietary sources of calcium. Exercise counseling:Discussed the importance of daily physical activity; Discussed the importance of weight bearing exercise Safety:Counseled about protecting skin from the sun and lowering the risk of skin cancer; Counseled about avoiding excessive and unsafe alcohol intake; Counseled about use of helmets for high velocity activiities; Counseled about home safety including use of smoke detectors, CO detectors, keeping home water temperature less than 120; Counseled about use of seat belts; An audit alcohol screening was performed and scored. Patient was asked about alcohol use. Advised about risks of alcohol. Personal risk was assessed. Patient agreed to plan and given information about available resources if needed. Discussion including screening and scoring greater than 7.5 minutes. Family Planning:Using control IUD; inserted 2017Risk Assessment and Lifestyle Change Counseling-female 40-49Reported bypatient.Coronary Artery Disease Risk Assessment:No Family history of coronary artery disease; Regular exercise program (2x/day- walking, hand weights-); Eats a diet low in fats and high in fiber; No personal history of hypertension Fracture Risk Assessment:No unexplained fracture; No falls; No use of corticosteroids Risk for Sexually Transmitted Disease Assessment:No history of sexually transmitted disease Cognitive/Behavioral Risk Assessment:No history of depression Safety Risk Assessment:Uses helmet for high velocity activities; Uses seat belts; No evidence of abuse/neglect Diet:Counseled about appropriate portion size; Counseled about eating a diet low in trans and saturated fats and high in fiber, fruits and vegetables; Counseled about appropriate calcium intake and good dietary sources of calcium.; Counseled about the importance of maintaining a positive calcium balance by taking 12-1500 mg ofcalcium and 1000 iu of vitamin D daily; Counseled about decreasing salt in diet Safety:Counseled about protecting skin from the sun and lowering the risk of skin cancer Advanced Directives:Discussed the importance of a health care proxy and advanced directives Emergerncy :Counseled about appropriate use of the emergency room and availability of urgent care at [facility] 50 yo F presents via telehealth (Due to COVID-19 crisis) for [facility]. 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 No longer at gym d/t COvid pandemic - looking forward to returning. Has mammo scheduled for tomorrow. Perimenopausal sx: Hot flashes, night sweats. No increased irritability. Still getting regular periodsLMP 08/13/20 No concerns today. Patient agreed to this visit via phone or secure telehealth platform due to the COVID -19 pandemic. Patient understands this is a scheduled visit and the usual procedures with regard to billing and confidentiality apply. The patient was notified to call our office for worsening or urgent symptoms. 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 States she had discussed this w/ AE about 1 yr ago but she never f/u on it. taking antihistamine- stopped due to s/e sedated. certain goods cause sneezing, soy. certain molly. roof of mouth feels itching. no swelling of lips. [place] video- pt has link. Time for intake: {{1 2 3 4* 5 6 7 8 9 10 11 12 13 14 15 16 17 18 19 20 21 22 23 24 25}} minutes. YAMILET Brody [address] [place], [address], [facility] 10/22/2020 13:08:53 03/01/2021 text/html L heel; bad in A M, or after sitting. Hasn't done any home treatments. Mostly sits at work. Walks or elliptical does OK. Has been bothering her for months, finally wants to address it Fiorella Headley MD [address] [place], [address], [facility] 03/01/2021 12:04:34 06/06/2024 text/html Physical Exam/FemaleReported bypatient.PHAPatient is here for a Wellness Visit. She describes her health status as good. Patient's health is the same as last year.Risk Assessment and Lifestyle Change Counseling 18-50Reported bypatient.Coronary Artery Disease Risk Assesment:No Family history of coronary artery disease; No personal history of diabetes; No history of peripheral vascular disease, AAA, or carotid disease; No personal history of coronary artery disease Breast Cancer Risk Assessment:Family history of breast cancer two or more first degree relatives; No history of breast cancer or dcis Lung Cancer Risk Assessment:Never smoked Cognitive/Behavioral Risk Assessment:No personal history of mental illness;Family history of mental illness Safety Risk Assessment:No evidence of abuse/neglectRisk Assessment and Lifestyle Change Counseling 50-64Reported bypatient.Coronary Artery Disease Risk Assessment:Family History of Coronary Artery Disease; No personal history of diabetes Breast Cancer Risk Assessment:No history of breast cancer or dcis Colon Cancer Risk Assessment:No family history of colon polyps or cancer Lung Cancer Risk Assessment:Never smoked Fracture Risk Assessment:No unexplained fracture Cognitive/Behavioral Risk Assessment:No personal history of mental illness Diet:Counseled about appropriate portion size; Counseled about eating a diet low in trans and saturated fats and high in fiber, fruits and vegetables; Counseled about appropriate calcium intake and good dietary sources of calcium. Exercise counseling:Discussed the importance of daily physical activity; Discussed the importance of weight bearing exercise Safety:Counseled about protecting skin from the sun and lowering the risk of skin cancer; Counseled about avoiding excessive and unsafe alcohol intake; Counseled about use of helmets for high velocity activiities; Counseled about home safety including use of smoke detectors, CO detectors, keeping home water temperature less than 120; Counseled about use of seat belts; An audit alcohol screening was performed and scored. Patient was asked about alcohol use. Advised about risks of alcohol. Personal risk was assessed. Patient agreed to plan and given information about available resources if needed. Discussion including screening and scoring greater than 7.5 minutes. Family Planning:Using control IUD; inserted 2017Risk Assessment and Lifestyle Change Counseling-female 40-49Reported bypatient.Coronary Artery Disease Risk Assessment:No Family history of coronary artery disease; Regular exercise program (2x/day- walking, hand weights-); Eats a diet low in fats and high in fiber; No personal history of hypertension Fracture Risk Assessment:No unexplained fracture; No falls; No use of corticosteroids Risk for Sexually Transmitted Disease Assessment:No history of sexually transmitted disease Cognitive/Behavioral Risk Assessment:No history of depression Safety Risk Assessment:Uses helmet for high velocity activities; Uses seat belts; No evidence of abuse/neglect Diet:Counseled about appropriate portion size; Counseled about eating a diet low in trans and saturated fats and high in fiber, fruits and vegetables; Counseled about appropriate calcium intake and good dietary sources of calcium.; Counseled about the importance of maintaining a positive calcium balance by taking 12-1500 mg ofcalcium and 1000 iu of vitamin D daily; Counseled about decreasing salt in diet Safety:Counseled about protecting skin from the sun and lowering the risk of skin cancer Advanced Directives:Discussed the importance of a health care proxy and advanced directives Emergerncy :Counseled about appropriate use of the emergency room and availability of urgent care at [facility] Wellness Exam. Last Pap 10/06/22 Nl. 08/31/20 Previous wellness: 50 yo F presents via telehealth (Due to COVID-19 crisis) for [facility]. 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 No longer at gym d/t COvid pandemic - looking forward to returning. Has mammo scheduled for tomorrow. Perimenopausal sx: Hot flashes, night sweats. No increased irritability. Still getting regular periodsLMP 08/13/20 No concerns today. Patient agreed to this visit via phone or secure telehealth platform due to the COVID -19 pandemic. Patient understands this is a scheduled visit and the usual procedures with regard to billing and confidentiality apply. The patient was notified to call our office for worsening or urgent symptoms. YAMILET Brody [address] [place] [address], [phone], [facility] 06/10/2024 20:08:27 07/23/2024 text/html Pt presents to discuss HRTHas not started taking yetHypertensive today; at home bp 07/18-07/22: 120/80, 127/70, 130/77, 120/72History of Present IllnessThe patient, with a history of hypertension and high cholesterol, presents for a follow-up visit. They have not yet started the prescribed estrogen and progestin due to concerns about their blood pressure. They have been monitoring their blood pressure at home, which has been within a good range. The patient has also been logging their food intake and has realized they have not been eating as healthily as they should. They have not been exercising due to a tennis elbow issue. The patient is also experiencing symptoms of menopause including night sweats, hot flashes, and brain fog. They have not yet started taking the prescribed hormone replacement therapy and are hoping that it will alleviate these symptoms. YAMILET Brody [address] [place], [id number], [facility] [place] 07/25/2024 19:59:54 OBGyn Episode No OBEpisode recorded.
[2024-10-13 08:23] LABS: Cholesterol 251 mg/dL (<200); HDL Cholesterol 56 mg/dL (>40); LDL Cholesterol Calculated 175 mg/dL (<100); Triglycerides 102 mg/dL (<150)
== END 2024-10-13 07:43 | disposition home or self-care (01) ==
LOC: HO.LAB 07:42
PROVIDERS: PCP Physician Assistant; Visit Provider Physician Assistant
DX: E78.5 Hyperlipidemia, unspecified (principal)
CPT/HCPCS: 36415; 80061

== ENCOUNTER 2025-01-21 07:39 | Outpatient (REF) | payer OTHER, SELFPAY ==
--- OUTSIDE RECORDS SUMMARY | 2025-01-21 07:43 | XMS_ITS | Data Portability ---
Author Organization [facility], [facility] Address [address] [place] [address] Care Team Providers Care Power Checker Name Role Phone [facility] MAGALI SANCHES Primary Care Provider [facility] Orth[facility]ist Assessment Encounter Date Assessment Date Assessment LastModified by Organization Details LastModified Time 10/20/2020 10/20/2020 Patient agreed to this visit via a secure telehealth platform due to the COVID -19 pandemic. Patient understands this is a scheduled visit and the usual procedures with regard to billing and confidentiality apply. Patient was notified that the provider location is Patient location: home During the visit the patient s medical history and medical record were [...] one week prior to the next visit. [email or web address] Not available 07/25/2024 19:59:32 Plan of Treatment Reminders Order Date Submit Date Provider Last Modified By Organization Details Last Modified Time Details Appointments Medical Manageme nt 2024 02:00P M YAMILET Brody Not available Not available Not available Wellness Visit 30 2024 09:00A M YAMILET Brody Not available Not available Not available Lab lipid panel, serum 2024 025 [facility], [address] [place] [address], [id number], 01/20/2025 08:29:44 lipid panel, serum 2023 024 [facility], [address] [place] [address], [id number], 10/14/2024 14:23:25 hepatiti s C virus Ab, serum 2023 024 [facility], [address] [place] [address], [id number], 06/30/2024 11:14:55 lipid panel, serum 2023 024 [facility], [address] [place] [address], [address], 06/30/2024 11:14:55 BMP, serum or plasma 2023 024 [facility], [address] [place] [address], [id number], 06/30/2024 11:14:54 Referral physical therapis t referral 2020 021 [facility], [address] [place] [address], [address], 03/08/2021 15:03:30 allergis t referral - year round allergie s- seasonal and foods- request your eval 2020 021 [email or web address] [facility], [address], [place], [address], 10/22/2020 10:16:20 Procedures None recorded . Surgeries None recorded . Imaging None recorded . Medication Orders estradio l 1 mg tablet 2024 025 [facility], [address] [place] [address], [address], 10/22/2024 08:30:41 estradio l 0.5 mg tablet 2023 024 [facility], [address] [place] [address], [address], 07/23/2024 08:30:09 progeste carmen microniz ed 100 mg capsule 2023 024 [facility], [address] [place] [address], [address], 07/23/2024 08:30:21 Patient TargetsNo targets recorded. 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 PAP SMEAR (SURE PATH) CE: SPECI MEN ADEQU ACY: Satis facto ry for evalu ation ; trans forma tion zone prese nt. INTER PRETA TION: NEGAT GINA FOR INTRA EPITH ELIAL LESIO N OR MALDEMETRA CASTANEDA . Elect bart [...] ng perfo rmed by Lizette dorado Oncla rity HR-HP V roney sis. Clini sylvia corre latio n is advis ed. This HPV test was perfo rmed at [facility], [address] [facility]. This test has been FDA appro priscilla for SureP ath cervi sylvia cytol ogy speci mens. The accur acy and preci fermín of this test for all other speci men sourc es has been verif ied in the Cytop athol ogy Labor at[facility] of the [facility] is[facility]ell and has [...] ts to: Saniya Lester MD Not Available [facility] (Outpatient) [address] [place] [address], [address], 11/02/2022 12:06:16 09/06/19 22 09/05/2021 MAMMO , pillo pearson No observ ation record ed. [email or web address] [facility] [address] [place], [address], 09/06/2021 09:07:11 09/11/19 23 09/08/2022 MAMMO pillo, tomos ynthe sis, bilat eral No observ ation record ed. [email or web address] [address] [place], [address], 09/17/2022 20:19:14 10/06/19 23 10/05/2022 MAMMO , clairee michel No observ ation record ed. [email or web address] [address] [place], [address], 10/05/2022 15:29:03 10/05/19 25 09/30/2024 MAMMO , scree michel No observ ation record ed. [email or web address] [address] [place], [address], 10/06/2024 08:37:01 Result Notes None recorded. Problems Name Problem SNOMED Code Status Onset Date Resolution Date Notes Provider Name and Address Organization Details Recorded Time Abnormal findings on diagnostic imaging of breast 211841521 Completed 11/10/2015 Brea Birch NP [address] [place] [address], [address] , [facility] 6 10:36:57 Axillary lymphadeno asia 084621446 Completed 11/10/2015 Brea Birch NP [address] [place] [address], , [facility] 6 10:36:57 Mammograph y abnormal 450184630 Active Brea Birch NP [address] [place] [address], , [facility] 6 10:36:57 Knee pain Completed 11/10/2015 Brea Birch NP [address] [place] [address], , [facility] 6 10:36:57 Disorder of hair 618675940 Completed 11/10/2015 Brea Birch NP [address] [place] [address], , [facility] 6 10:36:57 Lymphadeno asia 30852652 Active Brea Birch NP [address] [place] [address], , [facility] 6 10:36:57 Allergic rhinitis 45876183 Active 2016 YAMILET Brody [address] [place], [address] , [facility] 7 16:07:37 Adverse reaction to substance 723529890 Completed 200511/10/2015 Brea Birch NP [address] [place] [address], [address] , [facility] 6 10:36:57 Adverse reaction to drug 72519926 Completed 200511/10/2015 Brea Birch NP [address] [place], [address] , [facility] 6 10:36:57 Precordial pain 94573376 Completed 200606/25/2013 Brea Birch NP [address] [place] [address], [address] , [facility] 6 10:36:57 Abdominal pain 89561348 Completed 06/25/2013 Brea Birch NP [address] [place] [address], [address] , [facility] 6 10:36:57 Common cold 98054830 Completed 200206/25/2013 Brea Birch NP [address] [place] [address], [address] , [facility] 6 10:36:57 Palpitatio ns 18649164 Completed 200111/10/2015 Brea Birch NP [address] [place], [address] , [facility] 6 10:36:57 Pain of shoulder region 45145011 Completed 06/25/2013 Brea Birch NP [address] [place], [address] , [facility] 6 10:36:57 Anemia 876200198 Completed 200611/10/2015 Brea Birch NP [address] [place], [address] , [facility] 6 10:36:57 Benign essential hypertensi on 2730852 Completed 200608/31/2020 Rosa Valencia PA-C [address] [place] [address], [address] , [facility] 1 08:57:33 Elevated blood-pres sure reading without diagnosis of hypertensi on 253997335 Completed 11/10/2015 Brea Birch NP [address] [place], [address] , [facility] 6 10:36:57 Other Completed 06/25/2013 Brea Birch NP [address] [place], [address] , [facility] 6 10:36:57 Problem Notes None recorded. Procedures Surgical History Date Name Laterality Status Provider Name and Address Organization Details Recorded Time 1 prevention-card iovascular risk reduction counseling completed Adri Grey [facility] 08/31/2020 07:55:10 1 prevention-roberth al alcohol misuse screening completed Adri Grey [facility] 08/31/2020 07:55:10 4 85506: Therapeutic Exercise completed Jarred Ga, PT [address] [place], [address], [facility] 12/11/2013 08:13:50 4 40694: Therapeutic Exercise completed Jarred Ga, PT [address] [place], [address], [facility] 12/05/2013 10:10:30 4 Treatment and Advice completed Jarred Ga, PT [address] [place], [address], [facility] 12/05/2013 10:01:36 4 48855: Therapeutic Exercise completed Jarred Ga, PT [address] [place], [address], [facility] 11/21/2013 10:00:36 4 31078: Manual Therapy completed Jarred Ga, PT [address] [place], [address], [facility] 11/21/2013 10:00:36 4 19513: Therapeutic Exercise completed Jarred Ga, PT [address] [place], [address], [facility] 11/19/2013 10:00:20 4 78535: Manual Therapy completed Jarred Ga, PT [address] [place], [address], [facility] 11/19/2013 10:00:20 4 87533: Therapeutic Exercise completed Jarred Ga, PT [address] [place], [address], [facility] 11/11/2013 10:37:15 4 57929: Manual Therapy completed Jarred Ga, PT [address] [place], [address], [facility] 11/11/2013 10:37:15 4 Treatment and Advice completed Jarred Ga, PT [address] [place], [address], [facility] 10/29/2013 15:00:07 0 Treatment and Advice completed Jarred Ga, PT [address] [place], [address], [facility] 03/09/2010 09:01:17 0 Treatment and Advice completed Jarred Ga, PT [address] [place], [address], [facility] 02/16/2010 08:00:32 0 Treatment and Advice completed Jarred Ga, PT [address] [place], [address], [facility] 02/09/2010 08:03:22 Imaging Results None recorded. Procedure Notes None recorded. Medical Equipment None Reported. Allergies No known drug allergies Medications Name Sig Start Date Stop Date Status Note LastModified by Organization Details LastModified Time doxycycline hyclate 100 mg capsule 08/28 completed Not Available Not Available Not Available estradiol 1 mg tablet TAKE 1 TABLET BY MOUTH DAILY active Not Available Not Available No t Available estradiol 0.5 mg tablet Take 1 tablet every day by oral route. active Not Available Not Available No t Available fluticasone propionate 50 mcg/actuatio n nasal spray,suspen fermín SHAKE LIQUID AND USE 2 SPRAYS IN EACH NOSTRIL EVERY DAY IN THE MORNING active Not Available Not Available No t Available doxycycline hyclate 100 mg tablet 08/28 completed Not Available Not Available Not Available progesterone micronized 100 mg capsule TAKE 1 CAPSULE BY MOUTH EVERY DAY. 2024 active Not Available Not Available Not Avai lable Dulcolax (bisacodyl) 5 mg tablet,delay ed release TK 2 TS PO BID 08/31 completed Not Available Not Available Not Available tobramycin 0.3 %-dexamethas one 0.1 % eye drops,suspen fermín 06/03 completed Not Available Not Available Not Available peg 3350-electro lytes 236 gram-22.74 gram-6.74 gram-5.86 gram solution MIX AND DRINK UTD 08/31 completed Not Available Not Available Not Available Vitals Date Recorded Body height Body mass index (BMI) Body weight Heart rate Provider Name and Address Organization Details Last Updated DateTime 10/20/2020 156.85 cm 20.6 kg/m2 74241.35 g 73 /min Yamel Osorio MA [facility] 10/20/2020 12:06:02 Date Recorded Body height Body mass index (BMI) Body weight Heart rate Systolic blood pressure Diastolic blood pressure Provider Name and Address Organization Details Last Updated DateTime 5 153.67 cm 22.1 kg/m2 99878.1 2 g 66 /min 130 mm[Hg] 78 mm[Hg] Ju Gannon MA [facility] 5 07:58:20 Date Recorded Body height Body mass index (BMI) Body weight Systolic blood pressure Diastolic blood pressure Provider Name and Address Organization Details Last Updated DateTime 03/01/2021 156.85 cm 20.3 kg/m2 20041.16 g 130 mm[Hg] 68 mm[Hg] Fiorella Evelyne, [facility] 1 11:49:41 Date Recorded Body weight Body mass index (BMI) Body height Heart rate Oxygen saturation Oxygen saturation in Arterial blood by Pulse oximetry Systolic blood pressure Diastolic blood pressure Provider Name and Address Organization Details Last Updated DateTime 4 44893.7 1 g 22.3 kg/m2 153.67 cm 77 /min 99 % 99 % 144 mm[Hg] 80 mm[Hg] GUERO Gooden [facility] 4 16:09:15 Date Recorded Body height Body mass index (BMI) Body weight Heart rate Systolic blood pressure Diastolic blood pressure Systolic blood pressure Diastolic blood pressure Provider Name and Address Organization Details Last Updated DateTime 4 153.67 cm 22 kg/m2 79391.9 7 g 80 /min 134 mm[Hg] 74 mm[Hg] 123 mm[Hg] 72 mm[Hg] Ju Gannon [facility] 4 09:39:50 Social History Question Answer Notes LastModified by Organizat ion Details LastModified Time Tobacco Smoking Status Never Smoker Not Available [facility] 06/22/2011 04:54:19 Do You Have An Advance Directive? No Information not available 09/12/2011 Do You Wear A Helmet When Biking? Yes Information not available 08/26/2018 What Is Your Level Of Caffeine Consumption? None Information not available 06/22/2011 How Much Tobacco Do You Chew? None [email or web address] Information not available 11/22/2015 What Type Of Diet Are You Following? REGULAR Low Salt Information not available 07/15/2009 Which Illicit Or Recreational Drugs Have You Used? None Information not available 08/26/2018 Education 4 Year College Information not available 04/24/2016 Have There Been Any Changes To Your Family Or Social Situation? No Information not available 06/06/2024 Are There Any Guns Present In Your Home? No Information not available 09/12/2011 Live Alone Or With Others? With Others 17 Information not available 06/22/2011 Patient Has Health Care Proxy Signed And In Chart No Declines For Now [email or web address] Information not available 08/01/2018 Marital Status Informatio n not available 09/12/2011 Mosquito Repellent Used Routinely Yes Information not available 08/26/2018 What Was The Date Of Your Most Recent Tobacco Screening? 10/22/2024 [email or web address] Information not available 10/22/2024 How Many Children Do You Have? 2 Information not available 06/22/2011 Are There Any [...] Sunscreen Routinely? Yes Information not available 09/12/2011 Sex: Female Functional Status Question Answer Note LastModified by Organizat ion Details LastModified Time Do you or have you ever used any other forms of tobacco or nicotine? No Information not available 06/06/2024 What is your level of alcohol consumption? Occasional Maybe 1/month Information not available 04/24/2016 Are you currently employed? Yes Information not available 06/06/2024 What is your occupation? Other [email or web address] Information not available 01/19/2025 What is your exercise level? Moderate Information [...] Td(adult) unspecified formulation 6 completed Not Available [facility] 10/30/2022 13:20:03 influenza, unspecified formulation 7 completed Not Available [facility] 10/30/2022 13:20:03 Influenza, split virus, trivalent, preservative 2 completed Not Available [facility] 08/23/2019 02:18:36 Tdap 2 completed Not Available [facility] 08/23/2019 02:15:48 Influenza, split virus, trivalent, PF 3 completed Not Available [facility] 08/23/2019 02:33:05 influenza, unspecified formulation 8 completed Not Available [facility] 10/30/2022 13:20:03 Influenza, split virus, quadrivalent, preservative 9 completed Not Available [facility] 10/30/2022 13:20:03 SARS-COV-2 (COVID-19) vaccine, UNSPECIFIED 0 completed Not Available [facility] 10/30/2022 13:20:03 SARS-COV-2 (COVID-19) vaccine, UNSPECIFIED 1 completed Not Available [facility] 10/30/2022 13:20:03 influenza, unspecified formulation 0 completed Not Available [facility] 10/30/2022 13:20:03 Td (adult), 2 Lf tetanus toxoid, preservative free, adsorbed 4 completed YAMILET Brody [address] [place] [address], [address], [facility] 06/10/2024 20:04:50 influenza, unspecified formulation 4 completed GUERO Gooden, [facility] 06/06/2024 15:57:18 Past Encounters Encounter ID Performer Location Encounter Start Date Encounter Closed Date Diagnosis/Indication Diagnosis SNOMED-CT Code Diagnosis ICD10 Code Diagnosis Note [id number] Citlali Downey NP , [facility], [address] [place] [address] 11/27/2000 14:15:00 08/26/2008 02:02:29 [id number] MD DUANE Webber, [facility], [address] [place] [address] 12/09/2001 13:45:00 08/26/2008 02:02:29 [id number] [facility] - [address] [address] 06/12/2002 15:55:41 08/26/2008 02:02:29 [id number] JOAQUÍN Avalos, [facility], [address] [place] [address] 06/12/2002 15:14:03 08/26/2008 02:02:29 [id number] JOAQUÍN Avalos, [facility], [address] [place] [address] 01/09/2003 11:18:31 08/26/2008 02:02:29 [id number] [facility] - [address] [address] 01/19/2003 08:59:40 08/26/2008 02:02:29 [id number] FP TREATMENT NURSE CENTINELA [facility], [facility], [address] [place] [address] 04/08/2003 09:55:25 08/26/2008 02:02:29 [id number] FP TREATMENT NURSE CENTINELA [facility], [facility], [address] [place] [address] 04/10/2003 13:58:52 04/13/2003 08:55:35 [id number] JOAQUÍN Avalos, [facility], [address] [place] [address] 05/13/2004 16:25:29 05/14/2004 13:03:21 [id number] YAMILET Brody, [facility], [address] [place] [address] 02/08/2006 14:23:42 08/26/2008 02:02:29 [id number] YAMILET Brody, [facility], [address] [place] [address] 03/27/2006 15:00:39 03/28/2006 08:35:51 [id number] YAMILET Brody, [facility], [address] [place] [address] 07/03/2006 08:51:13 07/03/2006 13:51:57 [id number] Zhao Sanches MD , [facility], [address] [place] [address] 08/21/2006 11:47:02 08/23/2006 16:43:27 [id number] YAMILET Brody, [facility], [address] [place] [address] 08/29/2006 12:08:01 08/29/2006 14:11:24 [id number] YAMILET Brody, [facility], [address] [place] [address] 11/28/2006 11:45:44 11/28/2006 15:47:02 [id number] YAMILET Brody, [facility], [address] [place] [address] 05/30/2007 11:59:59 08/26/2008 02:02:29 [id number] [facility] - [facility] [address] [place] [address] 06/06/2007 07:28:43 06/06/2007 07:28:49 [id number] YAMILET Brody, [facility], [address] [place] [address] 07/15/2009 10:34:41 07/16/2009 13:59:30 [id number] [facility] , [facility] [address] [place] [address] 07/21/2009 09:02:34 07/26/2009 14:00:53 [id number] [facility] , [address] [address] 08/27/2009 08:39:52 08/30/2009 13:57:03 [id number] YAMILET Brody, [facility], [address] [place] [address] 08/31/2009 11:04:37 09/02/2009 08:01:38 [id number] YAMILET Brody, [facility], [address] [place] [address] 12/28/2009 09:01:40 01/18/2010 14:52:42 [id number] Jarred Ga , PT Physical Therapy, [address] [address] 02/09/2010 07:27:45 02/09/2010 09:25:26 [id number] Jarred Ga , PT Physical Therapy, [address] [address] 02/16/2010 07:26:36 02/16/2010 08:06:57 [id number] Jarred Ga , PT Physical Therapy, [address] [address] 03/09/2010 08:27:52 03/10/2010 08:18:24 [id number] Jarred Ga PT Physical Therapy, [address] [address] 03/28/2010 14:50:34 03/29/2010 08:02:46 [id number] Jarred Ga PT Physical Therapy, [address] [address] 04/13/2010 15:22:37 04/14/2010 07:53:47 [id number] [facility] , [address] [address] 07/28/2011 08:10:37 08/04/2011 09:02:45 [id number] YAMILET Brody, [facility], [address] [place] [address] 09/12/2011 08:49:26 09/12/2011 09:54:21 [id number] YAMILET Brody, [facility], [address] [place] [address] 05/23/2012 09:08:09 05/23/2012 09:48:45 [id number] YAMILET Brody, [facility], [address] [place] [address] 04/21/2013 08:50:52 04/21/2013 10:36:37 Axillary lymphadenopathy 604158097 pt feeling fullness in left axillary-n eg exam- not sure how long felt this- check chest xray, cbc- f/u with results- consider repeat ultrasound [id number] YAMILET Brody, [facility], [address] [place] [address] 05/26/2013 16:14:09 05/29/2013 08:40:56 Influenza vaccine needed 8680995237 106 Axillary lymphadenopathy 694248605 pt feeling fullness in left axillary-n eg exam- Negative MRI- f/u with surgeon as planned [id number] Jarred Ga , PT Physical Therapy, [address] [address] 10/29/2013 14:20:17 11/04/2013 09:14:28 Knee pain 63569892 Postoperative care [id number] Knee meniscecto my by Dr. Horowitz October 10, 2013 [id number] Jarred Ga , PT Physical Therapy, [address] [address] 11/06/2013 07:53:20 11/06/2013 09:17:47 Knee pain 57154037 Postoperative care [id number] Knee meniscecto my by Dr. Horowitz October 10, 2013 [id number] Jarred Ga , PT Physical Therapy, [address] [address] 11/11/2013 09:23:48 11/11/2013 10:46:42 Knee pain 89481182 Postoperative care [id number] Knee meniscecto my by Dr. Horowitz October 10, 2013 [id number] Jarred Ga , PT Physical Therapy, [address] [address] 11/13/2013 08:28:00 11/13/2013 10:24:47 Knee pain 93827160 Postoperative care [id number] Knee meniscecto my by Dr. Horowitz October 10, 2013 [id number] Jarred Ga , PT Physical Therapy, [address] [address] 11/19/2013 09:21:49 11/19/2013 11:25:54 Knee pain 25722602 Postoperative care [id number] Knee meniscecto my by Dr. Horowitz October 10, 2013 [id number] Jarred Ga , PT Physical Therapy, [address] [address] 11/21/2013 09:22:10 11/21/2013 10:38:48 Knee pain 67219018 Postoperative care [id number] Knee meniscecto my by Dr. Horowitz October 10, 2013 [id number] Jarred Ga , PT Physical Therapy, [address] [address] 11/27/2013 07:53:39 11/27/2013 12:39:43 Knee pain 52242309 Postoperative care [id number] Knee meniscecto my by Dr. Horowitz October 10, 2013 [id number] Jarred Ga , PT Physical Therapy, [address] [address] 12/05/2013 09:21:39 12/05/2013 10:23:31 Knee pain 08381366 Postoperative care [id number] Knee meniscecto my by Dr. Horowitz October 10, 2013 [id number] Jarred Ga , PT Physical Therapy, [address] [address] 12/11/2013 07:52:26 12/11/2013 09:18:15 Knee pain 32532779 Postoperative care [id number] Knee meniscecto my by Dr. Horowitz October 10, 2013 [id number] Zhao Sanches MD , [facility], [address] [place] [address] 12/17/2013 13:38:56 12/19/2013 10:48:31 Disorder of hair 811238029 [facility] [id number] [facility] [id number] Jarred Ga , PT Physical Therapy, [address] [address] 12/25/2013 07:51:52 12/25/2013 10:38:58 Knee pain 23257698 Postoperative care [id number] Knee meniscecto my by Dr. Horowitz October 10, 2013 [id number] YAMILET Brody , [facility], [address] [place] [address] 08/24/2014 15:21:39 08/24/2014 16:48:35 Adult health examination 841697798 see Risk Assessment and Lifestyle Change Counseling section above Counseling [id number] Screening for malignant neoplasm of cervix 102629788 [id number] Brea Birch NP , [facility], [address] [place] [address] 11/10/2015 10:11:39 11/11/2015 09:57:03 Benign neoplasm of skin of face 29810808 D23.30 advised daily sunscreen >30spf derm consult [id number] YAMILET Brody , [facility], [address] [place] [address] 11/22/2015 16:13:52 11/22/2015 16:49:19 Benign essential hypertension 9624460 I10 Blood pressure at goal - has pmh elevation- cont DASHdiet, exercise- f/u 1 year [id number] YAMILET Brody , [facility], [address] [place] [address] 12/30/2015 08:41:47 12/30/2015 09:43:30 Chest pain [id number] R07.9 f/u phone call- 01/05- resolved chest pain after using heat, rest [id number] Zhao Sanches MD , [facility], [address] [place] [address] 04/24/2016 15:16:04 04/24/2016 16:09:37 Adult health examination 441362669 Z00.00 see Risk Assessment and Lifestyle Change Counseling section above Counseling [id number] Z71 .9 [id number] Zhao Sanches MD , [facility], [address] [place] [address] 04/25/2017 15:13:35 04/25/2017 16:25:45 Adult health examination 951225506 Z00.00 see Risk Assessment and Lifestyle Change Counseling section above Counseling 856633517 Z71 .9 Allergic rhinitis 315569 04 J30.9 declined flonase tx, discussed wellness ctr - not an neurosurgical nurse practitioner- Increased blood pressure 89102103 R03.0 weekly checks- f/u 3 months [id number] Zhao Sanches MD , [facility], [address] [place] [address] 06/03/2018 14:09:50 06/03/2018 15:31:12 Palpitations 09620630 R00.2 [id number] Zhao Sanches MD , [facility], [address] [place] [address] 06/20/2018 16:20:27 06/20/2018 16:55:30 Screening mammography 31722767 Z12.31 Palpitations 03207412 R0 0.2 resolved- f/u recurrence [id number] Zhao Sanches MD , [facility], [address] [place] [address] 08/26/2018 07:58:58 08/26/2018 08:46:42 Adult health examination 248098001 Z00.00 see Risk Assessment and Lifestyle Change Counseling section above Counseling 261929462 Z71 .9 Depression screening 171 542563 Z13.89 depression screening tool administer ed, entered into emr, scored and discussed, time greater than 7.5 minutes Mixed hyperlipidemia 267 767898 E78.2 Screening for malignant neoplasm of cervix 127855920 Z12.4 Screening for malignant neoplasm of colon 174455678 Z12.11 Referral for a DIRECT booked colonoscop y. This patient is a healthy ASA Class 1 or 2 patient (only mild systemic disease), or a STABLE, well controlled insulin dependent diabetic. They do not have serious cardiac disease ie UT/angiopl asty within 1 year, symptomati c CHF; renal failure with CKD 4 or 5; take Coumadin, Plavix, Aggrenox, etc. [id number] YAMILET Brody , [facility], [address] [place] [address] 10/14/2018 16:34:09 10/14/2018 17:29:30 Screening for malignant neoplasm of colon 576574524 Z12.11 Referral for a DIRECT booked colonoscop y. This patient is a healthy ASA Class 1 or 2 patient (only mild systemic disease), or a STABLE, well controlled insulin dependent diabetic. They do not have serious cardiac disease ie UT/angiopl asty within 1 year, symptomati c CHF; renal failure with CKD 4 or 5; take Coumadin, Plavix, Aggrenox, etc. Pruritus of vagina 54371 003 L29.3 Eruption 061984601 R21 [id number] Rosa Valencia PA-C , [facility], [address] [place] [address] 08/28/2019 14:41:52 08/28/2019 15:27:58 Adult health examination 361449979 Z00.00 see risk assessment Counseling 573313289 Z71 .9 Depression screening 171 169720 Z13.89 depression screening tool administer ed, entered into emr, scored and discussed, time greater than 7.5 minutes Screening for malignant neoplasm of colon 448750693 Z12.11 WIll schedule at [facility]. [id number] Rocky Og MD , [facility], [address] [place] [address] 08/31/2020 08:30:54 09/09/2020 14:51:35 Adult health examination 204338551 Z00.01 No abnormal findings. Labs due. RTC 12 months. Counseling 710617785 Z71 .9 including cardiovasc ular risk reduction counseling Depression screening 171 Z13.89 depression screening tool administer ed, entered into emr, scored and discussed, time greater than 7.5 minutes Screening for alcohol abuse 249150603 Z13.39 see audit C Screening for disorder 583194674 Z11.59 [id number] Zhao Sanches MD , [facility], [address] [place] [address] 10/20/2020 12:03:41 10/21/2020 08:08:03 Allergic rhinitis 12401103 J30.9 trial with flonase- allergy referral with persistant allergies [id number] Fiorella Headley MD , [facility], [address] [place] [address] 03/01/2021 11:30:50 03/03/2021 15:47:15 Plantar fasciitis of left foot 3110792464 [id number] M72.2 Recommend a heel cup, PT. If not improving, let us know [id number] Zhao Sanches MD , [facility], [address] [place] [address] 06/06/2024 15:19:37 06/06/2024 16:59:45 Active or passive immunization 621156680 Z23 Elevated blood-pressure reading without diagnosis of hypertension 776361529 R03.0 improved with dash diet, exercise, f/u at [facility] HRT: combi terry estrogen/progestogen 978744333 Z79.890 Hyperlipidemia 79698976 E78.5 Hepatitis C screening 41 6913052 Z11.59 [id number] Zhao Sanches MD , [facility], [address] [place] [address] 07/23/2024 08:23:44 07/23/2024 09:07:13 Elevated blood-pressure reading without diagnosis of hypertension 323025251 R03.0 improved with dash diet, exercise, f/u at [facility] Menopausal syndrome 1237 83596 N95.9 Hyperlipidemia 27778756 E78.5 after nutrition changes- recheck 3 months [id number] Zhao Sanches MD , [facility], [address] [place] [address] 10/22/2024 07:48:03 10/22/2024 08:33:55 Menopausal syndrome 960265437 N95.9 Patient is <60 years old and is within 10 years of menopause. Patient does not have unexplaine d vaginal bleeding or a history of estrogen sensitive breast cancer, liver disease, history of blood clot, history of hypercoagu lable state, or history of cardiovasc ular disease. They desire Hormone therapy due to: We discussed the FDA approved indication s for hormone therapy including: vasomotor syndrome, prevention of bone loss, and vaginal symptoms. We discussed non-hormon al treatment options for hot flashes including: SSRIs, Fezolineta nt (Veozah), gabapentin . We also discussed ospemifene (Osphena) as a non-hormon al option for vaginal symptoms. Patient understand s that there is a slight increased risk of breast cancer from hormone therapy (3 additional cases per 1000 patients treated with estrogen/p rogesteron e for 5 years). We discussed risks of endometria l hyperplasi a for inadequate progestero ne opposition of estrogen effect on uterus. We discussed slight increased risk of gallbladde r disease and blood clots. Treatment options include: topical estrogen for vaginal dryness/GS M (genitouri nary syndrome of menopause) and systemic treatment (estrogen alone-no uterus, combinatio n estrogen/p rogesteron e uterus intact) for GSM, Vasomotor symptoms and prevention of bone loss. We discussed micronized progestero ne 300mg daily for treatment of menopause related sleep disorder. Patient understand s risks of treatment and would like to proceed with hormone therapy. Recommend follow up in 3 months. Elevated blood-pressure reading without diagnosis of hypertension 088736631 R03.0 improved with dash diet, exercise f/u 3 months Hyperlipidemia 48776044 E78.5 after nutrition changes- recheck 3 months Health Concerns Section Related Observation LastModified by Organization Detai ls LastModified Time None Recorded Concern Status LastModified by Organization Details LastModified Time None Recorded Advance Directives Directive N: Payers Insurance Date Sequence Insurance Name Policy Number Policy Blanco Covered Member ID Blanco Member ID Guarantor Name 10/01/2015 1 [employer] - NAP - CHOICE (POS II) [id number] Herve Hodges [id number] Yvette Hodges 08/29/2006 1 [facility] (HMO) [id number] Herve Hodges [id number] Yvette Hodges 04/29/2014 1 [facility] - CHOICE [id number] Herve Hodges [id number] Yvette Hodges 06/06/2024 1 [facility] (O) [id number] Yvette Hodges [id number] Yvette Hodges 01/20/2025 1 [employer] ([facility]) [id number] Yvette Hodges [id number] Yvette Hodges 06/06/2024 1 R [id number] Yvette Hodges [id number] Yvette Hodges Notes Date Note Type Note Provider Name and Address Organization Details Recorded Time 10/20/2020 text/html Pt would like to discuss referral for neurosurgical nurse practitioner- reports sneezing in AM, is sensitive to some foods. States she had discussed this w/ AE about 1 yr ago but she never f/u on it. taking antihistamine- stopped due to s/e sedated. certain goods cause sneezing, soy. certain molly. roof of mouth feels itching. no swelling of lips. [place] video- pt has link. Time for intake: 4 minutes. YAMILET Brody [address] [place], [address], [facility] 10/22/2020 13:08:53 03/01/2021 text/html L heel; bad in A M, or after sitting. Hasn't done any home treatments. Mostly sits at work. Walks or elliptical does OK. Has been bothering her for months, finally wants to address it Fiorella Headley MD [address] [place], [address], [facility] 03/01/2021 12:04:34 06/06/2024 text/html Physical Exam/FemaleReported bypatient.PHAPatient [...] room and availability of urgent care at [facility] [place] Exam. Last Pap 10/06/22 Nl. 08/31/20 Previous wellness: 50 yo F presents via telehealth (Due to COVID-19 crisis) for [facility]. 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 No [...] for worsening or urgent symptoms. YAMILET Brody [address] [place], [address], [facility] 06/10/2024 20:08:27 07/23/2024 text/html Pt presents to [...] will alleviate these symptoms. YAMILET Brody [address] [place], [address], [facility] 07/25/2024 19:59:54 10/22/2024 text/html Pt presents for 3m HRT f/uPast c/o night sweats, hot flashes, brain fogRev labsHistory of Present IllnessThe patient is a 54 year old female with hypertension and hyperlipidemia who presents for follow-up on hormonal treatment and blood pressure management.Hormonal treatment is leading to a slow improvement in symptoms. Body aches at night have reduced, and there is slight improvement in irritability. Hot flashes persist, mainly at night. There are no issues with bleeding or spotting related to hormonal treatment.Blood pressure readings at home range from 122/80 to 130/80. Today's reading is 130/78. There is occasional forgetfulness in tracking blood pressure, and results have not been sent as planned. Family history includes high blood pressure and heart disease, with a paternal grandfather affected.Recent blood work shows total cholesterol decreased from 296 to 251, and LDL from 211 to 175. HDL is 56, and triglycerides are at a good level. No current medication for cholesterol management.Adherence to a DASH diet since July includes increased fruits and vegetables and reduced salt. A salad is consumed daily, and fruit is a regular snack during the workweek. Processed meats and packaged foods are avoided. Exercise routine has improved since September, with regular gym attendance. Caffeine and alcohol consumption is minimal, with decaffeinated tea and a glass of wine about once a month. Ibuprofen is rarely used, with a preference for acetaminophen. YAMILET Brody [address] [place] [address], [place], [address], [facility] 10/23/2024 19:58:07 OBGyn Episode No OBEpisode recorded.
[2025-01-21 08:38] LABS: Cholesterol 238 mg/dL (<200); HDL Cholesterol 65 mg/dL (>40); LDL Cholesterol Calculated 158 mg/dL (<100); Triglycerides 76 mg/dL (<150)
== END 2025-01-21 07:40 | disposition home or self-care (01) ==
LOC: HO.LAB 07:39
PROVIDERS: PCP Physician Assistant; Visit Provider Physician Assistant
DX: E78.5 Hyperlipidemia, unspecified (principal)
CPT/HCPCS: 36415; 80061

== ENCOUNTER 2025-01-29 13:56 | Emergency (ER) | payer OTHER, SELFPAY ==
[2025-01-29 14:16] VITALS: BP 179/83; PULSE 77; RESP 16; TEMP 36.8; O2SAT 100; BMI 21.0
--- NOTE | 2025-01-29 14:19 | ED_ITS ---
HPI - General Adult General Chief complaint: Animal Bite Stated complaint: Dog bite Time Seen by Provider: 01/29/25 15:16 Source: patient Mode of arrival: ambulatory Limitations: no limitations History of Present Illness ED Provider: Lydia Sauceda PA-C HPI narrative: 54-year-old left hand dominant female with no significant medical history presents to the ER for evaluation of a dog bite. She states last night she was trying to bring her dog who is hard of hearing outside, she startled him and he nipped back at her, biting the inside of her left wrist. She states she cleaned out the area with hydrogen peroxide. Her dog is up-to-date on all of his shots and rabies vaccines. She woke up today and the puncture site at the left wrist is red, swollen, tender. When she was at work today she noticed a small red streak traveling up the anterior surface of her arm. She denies any fever or chills. There has been clear drainage from the bite site. She is able to fully flex and extend all of her digits. She feels tightness when she makes a fist. No numbness or tingling. complaint: Dog bite to left wrist Onset (ago): day(s) (1) Location: left and upper extremity Radiation: proximal Severity: moderate Severity scale (1-10): 5 Quality: aching Pain Consistency: constant Relieving factors: rest Exacerbating factors: movement Associated symptoms: denies other symptoms Treatments prior to arrival: none Related Data Previous Rx's ?Medication ?Instructions ?Recorded amoxicillin 875 mg-potassium 1 tab PO BID #20 tabs clavulanate 125 mg tablet Allergies Allergy/AdvReac Type Severity Reaction Status Date / Time mold Allergy Sneezing Verified 01/29/25 14:20 Review of Systems 2 Review of Systems: Yes all other systems are reviewed and are negative [facility] Past Medical History Surgical History History of colonoscopy Family History Family History Father History of high blood pressure Mother No problems noted. 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 Oriented X3. No acute distress. HEENT: normal inspection CVS: Normal heart rate and rhythm. Pulses normal. Respiratory: No respiratory distress. Skin: Skin warm and dry. Normal skin color. Normal skin turgor. No rashes. Extremities: anterior distal left forearm with a puncture wound with surrounding erythema, warmth, swelling, clear drainage. small red streak traveling to the AC area. no swelling the hand or fingers. Neuro: Oriented X 3. equal hand grasp. no sensory deficits. Course Course Course Narrative: This is an RME: Additional HPI, ROS, PE not included below will be deferred to primary provider. RME assessment and note performed by: Felicia Gandara PA-C This is a 54-year-old female who presents to the ER with complaints of left arm redness, swelling since last night. Was bit by her own dog yesterday and has had increased redness, swelling since. She has lymphagetic spread into her left antecubital region. dog and patient is UTD with vaccines Plan: Labs, further ER eval needed Medications Administered Discontinued Medications Generic Name Dose Route Start Last Admin Trade Name Lópezq PRN Reason Stop Dose Admin Ampicillin Sodium/Sulbactam 100 mls @ 200 mls/hr 01/29/25 15:36 01/29/25 16:18 Sodium 3 gm/ Sodium Chloride IV 01/29/25 16:05 Infused ONCE ONE Infusion Medical Decision Making Medical Decision Making MDM Narrative: 54-year-old female with no medical history presents to the ER for evaluation after her dog bit her in the left wrist last night. She has erythema, warmth, tenderness to the puncture site and surrounding areas with a single red streak extending faintly to the antecubital area on the left arm. She has no systemic signs of illness including no fever, chills, myalgias, malaise or fatigue. She has no evidence of infection down into the hand. There is some clear fluid draining from the puncture site which was sent for culture. IV was established and she was given dose of IV Unasyn. Labs are reassuring with a white blood cell count of only 11.8. She is not diabetic. CRP only mildly elevated 0.52. Risks and benefits of admission versus initiation of oral antibiotics and watchful waiting as an outpatient were discussed with the patient. At this time comfortable with discharge home on oral Augmentin with plan for closely monitoring her erythema, pain, and streaking. She was given strict instructions to return to the ER if symptoms worsen despite oral antibiotics. Patient expressed understanding. Comfortable discharge home. Differential Diagnosis Differential Diagnoses: The differential diagnosis associated with the presentation includes cellulitis, Abscess, lymphangitis, infected dog bite Admission/Observation Consideration of admission/observation: Escalation of care including admission/observation considered Lab Data MDM Lab Attestation statement: I reviewed the patient's lab results. as above 01/29/25 14:44 01/29/25 14:44 Labs: Lab Results 01/29/25 Range/Units 14:44 WBC 11.8 H (4.8-10.8) X10*3/uL RBC 4.18 L (4.20-5.50) X10*6/uL Hgb 13.2 (12.0-16.0) g/dl Hct 37.9 (37.0-47.0) % MCV 90.7 (80.0-98.0) fL MCH 31.6 (27.0-33.0) pg MCHC 34.8 (31.0-35.0) g/dl RDW 12.2 (11.0-16.0) % Plt Count 240 (160-400) X10*3/uL MPV 9.4 (9.4-12.3) fL Immature Gran % (Auto) 0.3 (0.0-0.4) % Neut % (Auto) 75.3 H (45-73) % Lymph % (Auto) 14.6 L (20-40) % [place] % (Auto) 6.6 (2-11) % Eos % (Auto) 2.7 (0-4) % Baso % (Auto) 0.5 (0-2) % Lymph # (Auto) 1.7 (1.2-4.9) X10*3/uL [place] # (Auto) 0.8 (0.1-1.2) X10*3/uL Eos # (Auto) 0.3 (0.0-0.4) X10*3/uL Baso # (Auto) 0.1 (0.0-0.2) X10*3/uL Abs Immat Gran (auto) 0.04 H (0.00-0.03) X10*3/uL Absolute Neuts (auto) 8.9 H (2.0-8.3) x10*3/uL Absolute Nucleated RBC 0.000 (0.0-0.012) X10*3/uL Nucleated RBC % (auto) 0.0 (0.0-0.2) /100WBC ESR 9 (0-20) MM/HR Sodium 141 (135-145) mmol/L Potassium 3.8 (3.3-5.1) mmol/L Chloride 106 (96-108) mmol/L Carbon Dioxide 26 (22-29) mmol/L Anion Gap 13 (12-20) BUN 18 H (9-16) mg/dL Creatinine 0.88 (0.5-1.4) mg/dL Estim Creat Clear Calc 56.4 Estimated GFR > 60 Random Glucose 101 (60-115) mg/dL Calcium 9.2 D (8.4-10.2) mg/dL Total Bilirubin 0.4 (0.0-1.0) mg/dL Direct Bilirubin 0.1 (0.0-0.5) mg/dL AST 25 (5-31) U/L ALT 15 (0-31) U/L Alkaline Phosphatase 75 (39-117) U/L C-Reactive Protein 0.52 H (< or = 0.50) mg/dL Total Protein 7.3 (6.5-8.0) g/dL Albumin 4.4 (3.5-5.0) g/dL External Record Review External record reviewed: Prior outpatient labs Tests considered The following testing was considered but not selected: xr considered, low suspicion for bony involvement Prescription Management I considered prescription management with: Pain Medication and Antibiotic Critical Care Time Critical Care Time Critical Care Time: No Discharge Plan Discharge Clinical Impression: Dog bite Patient Disposition: Home, Self-Care Instructions: Animal Bite (ED) Additional Instructions: Take the prescribed antibiotics as directed, complete the entire course and do not miss any doses If you have working redness, pain, swelling or streaking come back to the ER right away for futher evaluation Use warm compresses on the area several times per day to help increase blood flow and bring bacteria fighting cells to the area Elevate your arm when able If you develop new or worsening symptoms call 911 or come back to the ER for further evaluation. Prescriptions: New amoxicillin-pot clavulanate 875-125 mg tablet 1 tab PO BID Qty: 20 0RF Interventions: ED Discharge Assessment Last Done: 01/29/25 16:25 Discharge Date/Time: 01/29/25 16:25 Print Language: Malay
[2025-01-29 15:02] LABS: MANUAL DIFF FLAG NO
[2025-01-29 15:04] LABS: Basophils Absolute Auto 0.1 X10*3/uL (0.0-0.2); Basophils Percent Auto 0.5 % (0-2); Eosinophils Absolute Auto 0.3 X10*3/uL (0.0-0.4); Eosinophils Percent Auto 2.7 % (0-4); Hematocrit 37.9 % (37.0-47.0); Hemoglobin 13.2 g/dl (12.0-16.0); Imm Gran Abs Auto 0.04 X10*3/uL (0.00-0.03); Imm Gran Pct Auto 0.3 % (0.0-0.4); Lymphocytes Absolute Auto 1.7 X10*3/uL (1.2-4.9); Lymphocytes Percent Auto 14.6 % (20-40); Mean Corpuscular HGB Conc 34.8 g/dl (31.0-35.0); Mean Corpuscular Hemoglobin 31.6 pg (27.0-33.0); Mean Corpuscular Volume 90.7 fL (80.0-98.0); Mean Platelet Volume 9.4 fL (9.4-12.3); Monocytes Absolute Auto 0.8 X10*3/uL (0.1-1.2); Monocytes Percent Auto 6.6 % (2-11); Neutrophils Absolute Auto 8.9 x10*3/uL (2.0-8.3); Neutrophils Percent Auto 75.3 % (45-73); Platelet Count 240 X10*3/uL (160-400); Red Blood Count 4.18 X10*6/uL (4.20-5.50); Red Cell Distribution Width 12.2 % (11.0-16.0); White Blood Count 11.8 X10*3/uL (4.8-10.8)
[2025-01-29 15:27] LABS: Alanine Aminotransferase 15 U/L (0-31); Albumin Level 4.4 g/dL (3.5-5.0); Alkaline Phosphatase 75 U/L (39-117); Anion Gap 13 (12-20); Aspartate Amino Transferase 25 U/L (5-31); Bilirubin Direct 0.1 mg/dL (0.0-0.5); Bilirubin Total 0.4 mg/dL (0.0-1.0); Blood Urea Nitrogen 18 mg/dL (9-16); C Reactive Protein 0.52 mg/dL (< or = 0.50); Calcium 9.2 mg/dL (8.4-10.2); Carbon Dioxide 26 mmol/L (22-29); Chloride 106 mmol/L (96-108); Creatinine Clr Calc Pharmacy 56.4; Estimated Glomerular Filt Rate > 60; Glucose Random 101 mg/dL (60-115); Potassium 3.8 mmol/L (3.3-5.1); Sodium 141 mmol/L (135-145); Total Protein 7.3 g/dL (6.5-8.0)
[2025-01-29] MEDS: Ampicillin Sodium/Sulbactam Na 3 GM in 0.9 % Sodium Chloride 100 ML IV (15:47)
[2025-01-29 16:10] LABS: Erythrocyte Sedimentation Rate 9 MM/HR (0-20)
[2025-01-29 16:25] VITALS: BP 169/70; PULSE 70; RESP 16; TEMP 36.8; O2SAT 100
--- OUTSIDE RECORDS SUMMARY | 2025-01-29 19:21 | XMS_ITS | Data Portability ---
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 MAGALI SANCHES Primary Care Provider [facility] Orthopedist Assessment Encounter Date Assessment Date [...] Time Details Appointments Medical Manageme nt 2024 09:30A M YAMILET Brody Not available Not available Not available Wellness Visit 30 2024 09:00A M YAMILET Brody Not available Not available Not available Lab lipid panel, serum 2024 025 [facility], [address] [place] [address], [id number], 01/20/2025 08:29:44 lipid panel, serum 2023 024 [facility], [address] [place] [address], [id number], 10/14/2024 14:23:25 hepatiti s C virus Ab, serum 2023 024 [facility], [address] [place] [address], [id number], 06/30/2024 11:14:55 lipid panel, serum 2023 024 [facility], [address] [place] [address], [id number], 06/30/2024 11:14:55 BMP, serum or plasma 2023 024 [facility], [address] [place] [address], [id number], 06/30/2024 11:14:54 Referral physical therapis t referral 2020 021 [facility], [address] [place] [address], [address], 03/08/2021 15:03:30 allergis t referral - year round allergie s- seasonal and foods- request your eval 2020 021 [email or web address], [address], [place], [address], 10/22/2020 10:16:20 Procedures None recorded . Surgeries None recorded . Imaging None recorded . Medication Orders estradio l 1 mg tablet 2024 025 Counts include 234 beds at the [facility], [address] [place] [address], [id number], 10/22/2024 08:30:41 estradio l 0.5 mg tablet 2023 024 [facility], [address] [place] [address], [id number], 07/23/2024 08:30:09 progeste carmen microniz ed 100 mg capsule 2023 024 [facility], [address] [place] [address], [address], 07/23/2024 08:30:21 Patient TargetsNo targets recorded. 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 PAP SMEAR (SURE PATH) CE: SPECI MEN ADEQU ACY: Satis facto ry for evalu ation ; trans forma tion zone prese nt. INTER PRETA TION: NEGAT GINA FOR INTRA EPITH ELIAL LESIO N OR MALIG TONYA . Elect bart hoang Bridgett d Out [...] ng perfo rmed by Lizette dorado Oncla yesenia HR-HP V roney sis. Clini sylvia corre latio n is advis ed. This [facility], [address] [facility]. This test has been FDA appro priscilla for SureP ath cervi sylvia cytol ogy speci mens. The accur acy and preci fermín of this test for all other speci men sourc es has been verif ied in the [facility] is[facility]ell and has [...] ts to: Saniya Lester MD Not Available [facility] (Outpatient) [address] [place] [address], [address], 11/02/2022 12:06:16 09/06/19 22 09/05/2021 MAMMO pillo No observ ation [facility] [place] [address] [place], [address], 09/06/2021 09:07:11 09/11/19 23 09/08/2022 MAMMO pillo, tomos ynthe sis, bilat eral No observ ation record ed. camacho [address] [place], [address], 09/17/2022 20:19:14 10/06/19 23 10/05/2022 MAMMO , clairee michel No observ ation record ed. [email or web address] [address] [place], [address], 10/05/2022 15:29:03 10/05/19 25 09/30/2024 MAMMO , clairee michel No observ ation record ed. [email or web address] [address] [place], [address], 10/06/2024 08:37:01 Result Notes None recorded. Problems Name Problem SNOMED Code Status Onset Date Resolution Date Notes Provider Name and Address Organization Details Recorded Time Abnormal findings on diagnostic imaging of breast 796877030 Completed 11/10/2015 Brea Birch NP [address] [place] [address], [address] , [facility] 6 10:36:57 Axillary lymphadeno asia 617162806 Completed 11/10/2015 Brea Birch NP [address] [place] [address], , [facility] 6 10:36:57 Mammograph y abnormal 692027929 Active Brea Birch NP [address] [place] [address], , [facility] 6 10:36:57 Knee pain Completed 11/10/2015 Brea Birch NP [address] [place] [address], [address] , [facility] 6 10:36:57 Disorder of hair 300443156 Completed 11/10/2015 Brea Birch NP [address] [place] [address], , [facility] 6 10:36:57 Lymphadeno asia 99018959 Active Brea Birch NP [address] [place] [address], , [facility] 6 10:36:57 Allergic rhinitis 72208252 Active 2016 YAMILET Brody [address] [place] [address], [address] , [facility] 7 16:07:37 Adverse reaction to substance 250157222 Completed 200511/10/2015 Brea Birch NP [address] [place] [address], [address] , [facility] 6 10:36:57 Adverse reaction to drug 01414859 Completed 200511/10/2015 Brea Birch NP [address] [place], [address] , [facility] 6 10:36:57 Precordial pain 16149180 Completed 200606/25/2013 Brea Birch NP [address] [place] [address], [address] , [facility] 6 10:36:57 Abdominal pain 38398932 Completed 06/25/2013 Brea Birch NP [address] [place] [address], [address] , [facility] 6 10:36:57 Common cold 49672649 Completed 200206/25/2013 Brea Birch NP [address] [place] [address], [address] , [facility] 6 10:36:57 Palpitatio ns 86404054 Completed 200111/10/2015 Brea Birch NP [address] [place] [address], [address] , [facility] 6 10:36:57 Pain of shoulder region 84350494 Completed 06/25/2013 Brea Birch NP [address] [place], [address] , [facility] 6 10:36:57 Anemia 230606616 Completed 200611/10/2015 Brea Birch NP [address] [place], [address] , [facility] 6 10:36:57 Benign essential hypertensi on 7516801 Completed 200608/31/2020 Rosa Valencia PA-C [address] [place] [address], [address] , [facility] 1 08:57:33 Elevated blood-pres sure reading without diagnosis of hypertensi on 499452287 Completed 11/10/2015 Brea Birch NP [address] [place] [address], [address] , [facility] 6 10:36:57 Other Completed 06/25/2013 Brea Birch NP [address] [place] [address], [address] , [facility] 6 10:36:57 Problem Notes None recorded. Procedures Surgical History Date Name Laterality Status Provider Name and Address Organization Details Recorded Time 1 prevention-card iovascular risk reduction counseling completed Adri Grey [facility] 08/31/2020 07:55:10 1 prevention-roberth al alcohol misuse screening completed Adri Grey [facility] 08/31/2020 07:55:10 4 64266: Therapeutic Exercise completed Jarred Ga, PT [address] [place], [address], [facility] 12/11/2013 08:13:50 4 41214: Therapeutic Exercise completed Jarred Ga, PT [address] [place], [address], [facility] 12/05/2013 10:10:30 4 Treatment and Advice completed Jarred Ga, PT [address] [place], [address], [facility] 12/05/2013 10:01:36 4 73447: Therapeutic Exercise completed Jarred Ga, PT [address] [place], [address], [facility] 11/21/2013 10:00:36 04/18/201 4 82590: Manual Therapy completed Jarred Ga, PT [address] [place], [address], [facility] 11/21/2013 10:00:36 4 99711: Therapeutic Exercise completed Jarred Ga, PT [address] [place], [address], [facility] 11/19/2013 10:00:20 4 25434: Manual Therapy completed Jarred Ga, PT [address] [place], [address], [facility] 11/19/2013 10:00:20 4 52652: Therapeutic Exercise completed Jarred Ga, PT [address] [place], [address], [facility] 11/11/2013 10:37:15 4 47251: Manual Therapy completed Jarred Ga, PT [address] [place], [address], [facility] 11/11/2013 10:37:15 4 Treatment and Advice completed Jarred Ga, PT [address] [place], [address], [facility] 10/29/2013 15:00:07 0 Treatment and Advice completed Jarred Ga, PT [address] [place], [address], [facility] 03/09/2010 09:01:17 0 Treatment and Advice completed Jarred Ga, PT [address] [place], [address], [facility] 02/16/2010 08:00:32 0 Treatment and Advice completed Jarred Ga, PT [address] [place], [address], [facility] 02/09/2010 08:03:22 Imaging Results None recorded. [...] Updated DateTime 10/20/2020 156.85 cm 20.6 kg/m2 97159.35 g 73 /min Yamel Osorio MA [facility] 10/20/2020 12:06:02 Date Recorded Body height Body mass index (BMI) Body weight Heart rate Systolic blood pressure Diastolic blood pressure Provider Name and Address Organization Details Last Updated DateTime 5 153.67 cm 22.1 kg/m2 80691.1 2 g 66 /min 130 mm[Hg] 78 mm[Hg] Ju Gannon MA [facility] 5 07:58:20 Date Recorded Systolic blood pressure Diastolic blood pressure Provider Name and Address Organization Details Last Updated DateTime 10/27/2024 111 mm[Hg] 69 mm[Hg] Ju Gannon MA [facility] 01/23/2025 08:06:17 Date Recorded Systolic blood pressure Diastolic blood pressure Provider Name and Address Organization Details Last Updated DateTime 11/03/2024 126 mm[Hg] 69 mm[Hg] Ju Gannon MA [facility] 01/23/2025 08:06:48 Date Recorded Systolic blood pressure Diastolic blood pressure Provider Name and Address Organization Details Last Updated DateTime 11/10/2024 132 mm[Hg] 67 mm[Hg] Ju Gannon [facility] 01/23/2025 08:07:00 Date Recorded Systolic blood pressure Diastolic blood pressure Provider Name and Address Organization Details Last Updated DateTime 11/17/2024 131 mm[Hg] 67 mm[Hg] Ju Gannon [facility] 01/23/2025 08:07:13 Date Recorded Systolic blood pressure Diastolic blood pressure Provider Name and Address Organization Details Last Updated DateTime 11/24/2024 131 mm[Hg] 72 mm[Hg] Ju Gannon [facility] 01/23/2025 08:07:26 Date Recorded Systolic blood pressure Diastolic blood pressure Provider Name and Address Organization Details Last Updated DateTime 12/01/2024 108 mm[Hg] 63 mm[Hg] Ju Gannon [facility] 01/23/2025 08:07:37 Date Recorded Systolic blood pressure Diastolic blood pressure Provider Name and Address Organization Details Last Updated DateTime 12/08/2024 121 mm[Hg] 68 mm[Hg] Ju Gannon [facility] 01/23/2025 08:07:48 Date Recorded Systolic blood pressure Diastolic blood pressure Provider Name and Address Organization Details Last Updated DateTime 12/15/2024 130 mm[Hg] 68 mm[Hg] Ju Gannon [facility] 01/23/2025 08:08:01 Date Recorded Systolic blood pressure Diastolic blood pressure Provider Name and Address Organization Details Last Updated DateTime 12/22/2024 127 mm[Hg] 69 mm[Hg] Ju Gannon [facility] 01/23/2025 08:08:20 Date Recorded Systolic blood pressure Diastolic blood pressure Provider Name and Address Organization Details Last Updated DateTime 12/29/2024 130 mm[Hg] 68 mm[Hg] Ju Jagdeep [facility] 01/23/2025 08:08:37 Date Recorded Systolic blood pressure Diastolic blood pressure Provider Name and Address Organization Details Last Updated DateTime 01/05/2025 125 mm[Hg] 72 mm[Hg] Ju Gannon [facility] 01/23/2025 08:09:11 Date Recorded Systolic blood pressure Diastolic blood pressure Provider Name and Address Organization Details Last Updated DateTime 01/12/2025 124 mm[Hg] 68 mm[Hg] Ju Gannon [facility] 01/23/2025 08:10:27 Date Recorded Systolic blood pressure Diastolic blood pressure Provider Name and Address Organization Details Last Updated DateTime 01/19/2025 120 mm[Hg] 69 mm[Hg] Ju Gannon [facility] 01/23/2025 08:10:37 Date Recorded Body height Body mass index (BMI) Body weight Systolic blood pressure Diastolic blood pressure Provider Name and Address Organization Details Last Updated DateTime 03/01/2021 156.85 cm 20.3 kg/m2 88725.16 g 130 mm[Hg] 68 mm[Hg] Fiorella Stubbs [facility] 1 11:49:41 Date Recorded Body weight Body mass index (BMI) Body height Heart rate Oxygen saturation Oxygen saturation in Arterial blood by Pulse oximetry Systolic blood pressure Diastolic blood pressure Provider Name and Address Organization Details Last Updated DateTime 4 92336.7 1 g 22.3 kg/m2 153.67 cm 77 /min 99 % 99 % 144 mm[Hg] 80 mm[Hg] GUERO Gooden [facility] 4 16:09:15 Date Recorded Body height Body mass index (BMI) Body weight Heart rate Systolic blood pressure Diastolic blood pressure Systolic blood pressure Diastolic blood pressure Provider Name and Address Organization Details Last Updated DateTime 4 153.67 cm 22 kg/m2 95685.9 7 g 80 /min 134 mm[Hg] 74 mm[Hg] 123 mm[Hg] 72 mm[Hg] Ju Gannon [facility] 4 09:39:50 Social History Question Answer Notes LastModified by Organizat ion Details LastModified Time Tobacco Smoking Status Never Smoker Not Available [facility] 06/22/2011 04:54:19 Do You Have An Advance Directive? No Information not available 09/12/2011 Do You Wear A Helmet When Biking? Yes Information not available 08/26/2018 What Is Your Level Of Caffeine Consumption? None 17 Information not available 06/22/2011 How Much Tobacco [...] How Many Children Do You Have? 2 17 Information not available 06/22/2011 Are There Any [...] Td(adult) unspecified formulation 6 completed Not Available [facility] 10/30/2022 13:20:03 influenza, unspecified formulation 7 completed Not Available [facility] 10/30/2022 13:20:03 Influenza, split virus, trivalent, preservative 2 completed Not Available [facility] 08/23/2019 02:18:36 Tdap 2 completed Not Available [facility] 08/23/2019 02:15:48 Influenza, split virus, trivalent, PF 3 completed Not Available [facility] 08/23/2019 02:33:05 influenza, unspecified formulation 8 completed Not Available [facility] 10/30/2022 13:20:03 Influenza, split virus, quadrivalent, preservative 9 completed Not Available [facility] 10/30/2022 13:20:03 SARS-COV-2 (COVID-19) vaccine, UNSPECIFIED 0 completed Not Available [facility] 10/30/2022 13:20:03 SARS-COV-2 (COVID-19) vaccine, UNSPECIFIED 1 completed Not Available [facility] 10/30/2022 13:20:03 influenza, unspecified formulation 0 completed Not Available [facility] 10/30/2022 13:20:03 Td (adult), 2 Lf tetanus toxoid, preservative free, adsorbed 4 completed YAMILET Brody [address] [place] [address], [address], [facility] 06/10/2024 20:04:50 influenza, unspecified formulation 4 completed GUERO Gooden, [facility] 06/06/2024 15:57:18 Past Encounters Encounter ID Performer Location Encounter Start Date Encounter Closed Date Diagnosis/Indication Diagnosis SNOMED-CT Code Diagnosis ICD10 Code Diagnosis Note [id number] JOAQUÍN Avalos, [facility], OFFICE [address] [place] [address] 11/27/2000 14:15:00 08/26/2008 02:02:29 [id number] MD DUANE Webber, [facility], OFFICE [address] [place] [address] 12/09/2001 13:45:00 08/26/2008 02:02:[id number] [facility] - [facility] [address] [place] [address] 06/12/2002 15:55:41 08/26/2008 02:02:29 [id number] JOAQUÍN Avalos, [facility], OFFICE [address] [place] [address] 06/12/2002 15:14:03 08/26/2008 02:02:29 [id number] Citlali Downey NP , [facility], [address]ICE [address] [place] [address] 01/09/2003 11:18:31 08/26/2008 02:02:[id number] [facility] - [facility] [address] [place] [address] 01/19/2003 08:59:40 08/26/2008 02:02:29 [id number] FP TREATMENT NURSE [facility], [facility], OFFICE [address] [place] [address] 04/08/2003 09:55:25 08/26/2008 02:02:29 [id number] FP TREATMENT NURSE [facility], [facility], OFFICE [address] [place] [address] 04/10/2003 13:58:52 04/13/2003 08:55:35 [id number] JOAQUÍN Avalos, [facility], OFFICE [address] [place] [address] 05/13/2004 16:25:29 05/14/2004 13:03:21 [id number] YAMILET Brody, [facility], OFFICE [address] [place] [address] 02/08/2006 14:23:42 08/26/2008 02:02:29 [id number] YAMILET Brody, [facility], OFFICE [address] [place] [address] 03/27/2006 15:00:39 03/28/2006 08:35:51 [id number] YAMILET Brody, [facility], OFF[address] [place] [address] 07/03/2006 08:51:13 07/03/2006 13:51:57 [id number] MD DUANE Covington, [facility], [address] [place] [address] 08/21/2006 11:47:02 08/23/2006 16:43:27 [id number] YAMILET Brody, [facility], OFF[address] [place] [address] 08/29/2006 12:08:01 08/29/2006 14:11:24 [id number] YAMILET Brody, [facility], [address] [place] [address] 11/28/2006 11:45:44 11/28/2006 15:47:02 [id number] YAMILET Brody FP, [facility], [address] [place] [address] 05/30/2007 11:59:59 08/26/2008 02:02:29 [id number] [facility] - [facility] [address] [place] [address] 06/06/2007 07:28:43 06/06/2007 07:28:49 [id number] YAMILET Brody, [facility], OFFICE [address] [place] [address] 07/15/2009 10:34:41 07/16/2009 13:59:30 [id number] [facility] Radiology , [facility] [address] [place] [address] 07/21/2009 09:02:34 07/26/2009 14:00:53 [id number] [facility] ECHO VASCULAR TECH Radiology , [facility] [address] [place] [address] 08/27/2009 08:39:52 08/30/2009 13:57:03 [id number] YAMILET Brody, [facility], OFF[address] [place] [address] 08/31/2009 11:04:37 09/02/2009 08:01:38 [id number] YAMILET Brody, [facility], [address] [place] [address] 12/28/2009 09:01:40 01/18/2010 14:52:42 [id number] Jarred Ga , PT Physical Therapy, [facility] [address] [place] [address] 02/09/2010 07:27:45 02/09/2010 09:25:26 [id number] Jarred Ga , PT Physical Therapy, [address] [address] 02/16/2010 07:26:36 02/16/2010 08:06:57 [id number] Jarred Ga , PT Physical Therapy, [address] [address] 03/09/2010 08:27:52 03/10/2010 08:18:24 [id number] Jarred Ga , PT Physical Therapy, [address] [address] 03/28/2010 14:50:34 03/29/2010 08:02:46 [id number] Jarred Ga , PT Physical Therapy, [address] [address] 04/13/2010 15:22:37 04/14/2010 07:53:47 [id number] [facility] Radiology , [address] [address] 07/28/2011 08:10:37 08/04/2011 09:02:45 [id number] YAMILET Brody, [facility], OFFICE [address] [place] [address] 09/12/2011 08:49:26 09/12/2011 09:54:21 [id number] YAMILET Brody, [facility], OFF[address] [place] [address] 05/23/2012 09:08:09 05/23/2012 09:48:45 [id number] YAMILET Brody, [facility], [address] [place] [address] 04/21/2013 08:50:52 04/21/2013 10:36:37 Axillary lymphadenopathy 008553177 pt feeling fullness in left axillary-n eg exam- not sure how long felt this- check chest xray, cbc- f/u with results- consider repeat ultrasound [id number] YAMILET Brody, [facility], OFF[address] [place] [address] 05/26/2013 16:14:09 05/29/2013 08:40:56 Influenza vaccine needed 5396247406 106 Axillary lymphadenopathy 610912197 pt feeling fullness in left axillary-n eg exam- Negative MRI- f/u with surgeon as planned [id number] Jarred Ga , PT Physical Therapy, [address] [address] 10/29/2013 14:20:17 11/04/2013 09:14:28 Knee pain [id number] Postoperative care [id number] Knee meniscecto my by Dr. Horowitz October 10, 2013 [id number] Jarred Ga , PT Physical Therapy, [address] [address] 11/06/2013 07:53:20 11/06/2013 09:17:47 Knee pain 96081356 Postoperative care [id number] Knee meniscecto my by Dr. Horowitz October 10, 2013 [id number] Jarred Ga , PT Physical Therapy, [address] [address] 11/11/2013 09:23:48 11/11/2013 10:46:42 Knee pain [id number] Postoperative care [id number] Knee meniscecto my by Dr. Horowitz October 10, 2013 [id number] Jarred Ga , PT Physical Therapy, [address] [address] 11/13/2013 08:28:00 11/13/2013 10:24:47 Knee pain 45644553 Postoperative care [id number] Knee meniscecto my by Dr. Horowitz October 10, 2013 [id number] Jarred Ga , PT Physical Therapy, [address] [address] 11/19/2013 09:21:49 11/19/2013 11:25:54 Knee pain 74305424 Postoperative care [id number] Knee meniscecto my by Dr. Horowitz October 10, 2013 [id number] Jarred Ga , PT Physical Therapy, [address] [address] 11/21/2013 09:22:10 11/21/2013 10:38:48 Knee pain [id number] Postoperative care [id number] Knee meniscecto my by Dr. Horowitz October 10, 2013 [id number] Jarred Ga , PT Physical Therapy, [address] [address] 11/27/2013 07:53:39 11/27/2013 12:39:43 Knee pain [id number] Postoperative care [id number] Knee meniscecto my by Dr. Horowitz October 10, 2013 [id number] Jarred Ga , PT Physical Therapy, [address] [address] 12/05/2013 09:21:39 12/05/2013 10:23:31 Knee pain 56702856 Postoperative care [id number] Knee meniscecto my by Dr. Horowitz October 10, 2013 [id number] Jarred Ga , PT Physical Therapy, [facility] [address] [place] [address] 12/11/2013 07:52:26 12/11/2013 09:18:15 Knee pain 88113457 Postoperative care [id number] Knee meniscecto my by Dr. Horowitz October 10, 2013 [id number] Zhao Sanches MD , [facility], OFF[address] [place] [address] 12/17/2013 13:38:56 12/19/2013 10:48:31 Disorder of hair [id number] [facility] [id number] [facility] [id number] Jarred Ga , PT Physical Therapy, [facility] [address] [place] [address] 12/25/2013 07:51:52 12/25/2013 10:38:58 Knee pain [id number] Postoperative care [id number] Knee meniscecto my by Dr. Horowitz October 10, 2013 [id number] YAMILET Brody , [facility], OFF[address] [place] [address] 08/24/2014 15:21:39 08/24/2014 16:48:35 Adult health examination [id number] see Risk Assessment and Lifestyle Change Counseling section above Counseling [id number] Screening for malignant neoplasm of cervix [id number] Brea Birch NP FP, [facility], [address] [place] [address] 11/10/2015 10:11:39 11/11/2015 09:57:03 Benign neoplasm of skin of face 06242599 D23.30 advised daily sunscreen >30spf derm consult [id number] YAMILET Brody, [facility], [address] [place] [address] 11/22/2015 16:13:52 11/22/2015 16:49:19 Benign essential hypertension 2692895 I10 Blood pressure at goal - has pmh elevation- cont DASHdiet, exercise- f/u 1 year [id number] YAMILET Brody, [facility], [address] [place] [address] 12/30/2015 08:41:47 12/30/2015 09:43:30 Chest pain 60270313 R07.9 f/u phone call- 01/05- resolved chest pain after using heat, rest [id number] Zhao Sanches MD , [facility], [address] [place] [address] 04/24/2016 15:16:04 04/24/2016 16:09:37 Adult health examination 724258840 Z00.00 see Risk Assessment and Lifestyle Change Counseling section above Counseling 115111672 Z71 .9 [id number] Zhao Sanches MD , [facility], [address] [place] [address] 04/25/2017 15:13:35 04/25/2017 16:25:45 Adult health examination 374190698 Z00.00 see Risk Assessment and Lifestyle Change Counseling section above Counseling 388904486 Z71 .9 Allergic rhinitis 025477 04 J30.9 declined flonase tx, discussed wellness ctr - 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- Increased blood pressure 13256449 R03.0 weekly checks- f/u 3 months [id number] Zhao Sanches MD , [facility], [address] [place] [address] 06/03/2018 14:09:50 06/03/2018 15:31:12 Palpitations 79206418 R00.2 [id number] Zhao Sanches MD , [facility], [address] [place] [address] 06/20/2018 16:20:27 06/20/2018 16:55:30 Screening mammography 25251973 Z12.31 Palpitations 59195208 R0 0.2 resolved- f/u recurrence [id number] Zhao Sanches MD , [facility], [address] [place] [address] 08/26/2018 07:58:58 08/26/2018 08:46:42 Adult health examination 043179920 Z00.00 see Risk Assessment and Lifestyle Change Counseling section above Counseling 442260815 Z71 .9 Depression screening 171 609844 Z13.89 depression screening tool administer ed, entered into emr, scored and discussed, time greater than 7.5 minutes Mixed hyperlipidemia 267 406482 E78.2 Screening for malignant neoplasm of cervix 993710371 Z12.4 Screening for malignant neoplasm of colon 493194918 Z12.11 Referral for a DIRECT booked colonoscop y. This patient is a healthy ASA Class 1 or 2 patient (only mild systemic disease), or a STABLE, well controlled insulin dependent diabetic. They do not have serious cardiac disease ie DE/angiopl asty within 1 year, symptomati c CHF; renal failure with CKD 4 or 5; take Coumadin, Plavix, Aggrenox, etc. [id number] YAMILET Brody , [facility], [address] [place] [address] 10/14/2018 16:34:09 10/14/2018 17:29:30 Screening for malignant neoplasm of colon 860983344 Z12.11 Referral for a DIRECT booked colonoscop y. This patient is a healthy ASA Class 1 or 2 patient (only mild systemic disease), or a STABLE, well controlled insulin dependent diabetic. They do not have serious cardiac disease ie DE/angiopl asty within 1 year, symptomati c CHF; renal failure with CKD 4 or 5; take Coumadin, Plavix, Aggrenox, etc. Pruritus of vagina 20172 003 L29.3 Eruption 363693523 R21 [id number] Rosa Valencia PA-C , [facility], [address] [place] [address] 08/28/2019 14:41:52 08/28/2019 15:27:58 Adult health examination 556442020 Z00.00 see risk assessment Counseling 681301016 Z71 .9 Depression screening 171 949554 Z13.89 depression screening tool administer ed, entered into emr, scored and discussed, time greater than 7.5 minutes Screening for malignant neoplasm of colon 488281974 Z12.11 WIll schedule at [facility] [place]. [id number] MD DUANE Ha, [facility], [address] [place] [address] 08/31/2020 08:30:54 09/09/2020 14:51:35 Adult health examination 925786905 Z00.01 No abnormal findings. Labs due. RTC 12 months. Counseling 865956246 Z71 .9 including cardiovasc ular risk reduction counseling Depression screening 171 856870 Z13.89 depression screening tool administer ed, entered into emr, scored and discussed, time greater than 7.5 minutes Screening for alcohol abuse 330634116 Z13.39 see audit C Screening for disorder 371100962 Z11.59 [id number] Zhao Sanches MD , [facility], [address] [place] [address] 10/20/2020 12:03:41 10/21/2020 08:08:03 Allergic rhinitis 72124413 J30.9 trial with flonase- allergy referral with persistant allergies [id number] Fiorella Headley MD , [facility], [address] [place] [address] 03/01/2021 11:30:50 03/03/2021 15:47:15 Plantar fasciitis of left foot 9844018037 2415805 M72.2 Recommend a heel cup, PT. If not improving, let us know [id number] Zhao Sanches MD , [facility], [address] [place] [address] 06/06/2024 15:19:37 06/06/2024 16:59:45 Active or passive immunization 020834079 Z23 Elevated blood-pressure reading without diagnosis of hypertension 783728929 R03.0 improved with dash diet, exercise, f/u at [facility] HRT: combi terry estrogen/progestogen 543168793 Z79.890 Hyperlipidemia 43158502 E78.5 Hepatitis C screening 41 6101888 Z11.59 [id number] Zhao Sanches MD , [facility], [address] [place] [address] 07/23/2024 08:23:44 07/23/2024 09:07:13 Elevated blood-pressure reading without diagnosis of hypertension 348181060 R03.0 improved with dash diet, exercise, f/u at [facility] Menopausal syndrome 1237 63631 N95.9 Hyperlipidemia 04923412 E78.5 after nutrition changes- recheck 3 months [id number] Zhao Sanches MD , [facility], [address] [place] [address] 10/22/2024 07:48:03 10/22/2024 08:33:55 Menopausal syndrome 799131692 N95.9 Patient is <60 years old and [...] Elevated blood-pressure reading without diagnosis of hypertension 948273734 R03.0 improved with dash diet, exercise f/u 3 months Hyperlipidemia 56269408 E78.5 after nutrition changes- recheck 3 months Health Concerns Section Related Observation LastModified by Organization Detai ls LastModified Time None Recorded Concern Status LastModified by Organization Details LastModified Time None Recorded Advance Directives Directive N: Payers Insurance Date Sequence Insurance Name Policy Number Policy Blanco Covered Member ID Blanco Member ID Guarantor Name 10/01/2015 1 [employer] - NAP - CHOICE (POS II) [id number] Herve Hodges [id number] Yvette Hodges 08/29/2006 1 [facility] [employer] [facility] (O) [id number] Herve Hodges [id number] Yvette Hodges 04/29/2014 1 [facility] - CHOICE [id number] Herve Hodges [id number] Yvette Hodges 06/06/2024 1 [facility] (O) [id number] Yvette Hodges [id number] Yvette Hodges 01/23/2025 1 [employer] [facility] [id number] Yvette Hodges [id number] Yvette Hdoges 06/06/2024 1 [id number] Yvette Hodges [id number] Yvette Hodges Notes Date Note Type Note Provider Name and Address Organization Details Recorded Time 10/20/2020 text/html 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 States she had discussed this w/ AE about 1 yr ago but she never f/u on it. taking antihistamine- stopped due to s/e sedated. certain goods cause sneezing, soy. certain molly. roof of mouth feels itching. no swelling of lips. Wilson video- pt has link. Time for intake: 4 minutes. YAMILET Brody [address] [place] [address], [phone], [facility] 10/22/2020 13:08:53 03/01/2021 text/html L heel; bad in A M, or after sitting. Hasn't done any home treatments. Mostly sits at work. Walks or elliptical does OK. Has been bothering her for months, finally wants to address it Fiorella Headley MD [address] [place] [address], [phone], [facility] 03/01/2021 12:04:34 06/06/2024 text/html Physical Exam/FemaleReported [...] room and availability of urgent care at [facility] Wellness Exam. Last Pap 10/06/22 Nl. 08/31/20 Previous wellness: 50 yo F presents via telehealth (Due to COVID-19 crisis) for PHA. 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 No [...] for worsening or urgent symptoms. YAMILET Brody [address] [place] [address], [phone], [facility] 06/10/2024 20:08:27 07/23/2024 text/html Pt presents [...] will alleviate these symptoms. YAMILET Brody [address] [place], [phone], [facility] 07/25/2024 19:59:54 10/22/2024 text/html Pt presents [...] with a preference for acetaminophen. YAMILET Brody [address] [place], [phone], [facility] 10/23/2024 19:58:07 OBGyn Episode No OBEpisode recorded.
== END 2025-01-29 16:25 | disposition home or self-care (01) ==
PROVIDERS: Physician Assistant Medical; Emergency Provider Emergency Medicine; PCP Physician Assistant
DX: S61.552A Open bite of left wrist, initial encounter (principal); W54.0XXA Bitten by dog, initial encounter; Y93.9 Activity, unspecified; Y92.9 Unspecified place or not applicable; Y99.8 Other external cause status; Z79.899 Other long term (current) drug therapy
CPT/HCPCS: 36415; 80048; 80076; 85025; 85652; 86140; 87070; 87077; 87186; 87205; 96365; 99283; 99284; J0295